=== PATIENT | female | born 1930 | race Caucasian/White ===

== ENCOUNTER → 2016-10-25 | Outpatient (REF) | payer MEDICARE, MEDICAID ==
[~2016-10-25] MED LIST: /ACET5TA PO; /WARF25TA OR; ACET500C OR; ACET500T2; ALDA25TA2 PO; AUGM500T34 PO; DIGO0.12 PO; DIOV160T5; DYAZIDE PO; FERR325T OR; FURO20TA2 PO; IRON CR PO; IRON65TA PO; LANO0.1211 OR; LASI20TA PO; LASI40TA PO; LISI10TA4 OR; METO100T PO; METO25TA2; METOPROLOL TARTRATE OR; MICR10CA PO; OMEP20CA3 PO; OMEP20TA7; OMEP20TA7 OR; PLAV75TA2; PLAV75TA2 OR; PRAD150C PO; PRAD75CA3 PO; SIMV20TA2 PO; SIMV40TA2 OR; VENTAER INH; VITA100T OR; VITA500C OR; VITA500T3 PO; ZOCO40TA; centrum silver; lovastatin; metoprolol
[2016-10-25 20:09] LABS: MEAN CORPUSCULAR HEMOGLOBIN 32.7 pg (27.0-33.0); MEAN CORPUSCULAR HGB CONC 31.3 g/dl (32.0-36.5); MEAN CORPUSCULAR VOLUME 104.4 fl (80.0-96.0); RED CELL DISTRIBUTION WIDTH 15.4 % (11.5-14.5); WHITE BLOOD COUNT 4.9 K/mm3 (4.0-10.0)
[2016-10-25 20:44] LABS: ALBUMIN 2.6 GM/DL (3.2-5.2); ALBUMIN/GLOBULIN RATIO 0.72 (1.00-1.93); ALKALINE PHOSPHATASE 92 U/L (45-117); ALT/SGPT 16 U/L (12-78); ANION GAP 8 MEQ/L (8-16); AST/SGOT 22 U/L (15-37); BILIRUBIN,TOTAL 0.6 MG/DL (0.2-1.0); BLOOD UREA NITROGEN 12 MG/DL (7-18); CALCIUM LEVEL 8.9 MG/DL (8.8-10.2); CARBON DIOXIDE LEVEL 36 MEQ/L (21-32); CHLORIDE LEVEL 98 MEQ/L (98-107); CREATININE FOR GFR 0.78 MG/DL (0.55-1.02); GLOMERULAR FILTRATION RATE > 60.0 (>32); GLUCOSE, FASTING 97 MG/DL (83-110); POTASSIUM SERUM 4.1 MEQ/L (3.5-5.1); SODIUM LEVEL 142 MEQ/L (136-145); TOTAL PROTEIN 6.2 GM/DL (6.4-8.2)
== END ==
LOC: M SFHCADAM 11:50
PROVIDERS: ATTEND Physician Assistant
DX: I11.0 Hypertensive heart disease with heart failure (principal); D50.9 Iron deficiency anemia, unspecified; M25.511 Pain in right shoulder
CPT/HCPCS: 80053; 85027; 85652; G0463

== ENCOUNTER 2016-11-14 11:07 | Inpatient (IN) | payer MEDICAID, MEDICARE ==
[~2016-11-14] VITALS: Ht 149.9 cm; Wt 60.3 kg
[2016-11-14] MEDS: CYANOCOBALAMIN 500 MCG TAB PO SCH (09:00)
[~2016-11-14 11:07] MED LIST changes: -DIGO0.12 PO; -FURO20TA2 PO; -IRON65TA PO; -METO100T PO; -OMEP20CA3 PO; -PRAD75CA3 PO; -SIMV20TA2 PO; -VITA500T3 PO
[2016-11-14] MEDS ORDERED: ACETAMINOPHEN 325 MG TAB As Ordered ONE (12:19)
[2016-11-14 12:27] LABS: BASO % 0.1 % (0.0-1.0); EOS % 0.2 % (0.0-3.0); LARGE UNSTAINED CELL # 0.2 K/mm3 (0.0-0.4); LARGE UNSTAINED CELL % 3.2 % (0.0-4.0); LYMPH # 0.7 K/mm3 (1.5-4.5); LYMPH % 14.1 % (24.0-44.0); MEAN CORPUSCULAR HGB CONC 32.6 g/dl (32.0-36.5); MEAN CORPUSCULAR VOLUME 104.3 fl (80.0-96.0); MONO # 0.4 K/mm3 (0.0-0.8); NEUTROPHILS % 75.4 % (36.0-66.0); PLATELET COUNT, AUTOMATED 279 k/mm3 (150-450); RED CELL DISTRIBUTION WIDTH 15.3 % (11.5-14.5); WHITE BLOOD COUNT 5.2 K/mm3 (4.0-10.0)
[2016-11-14 12:44] LABS: INR 1.37
[2016-11-14 12:47] LABS: CREATININE FOR GFR 1.21 MG/DL (0.55-1.02); GLOMERULAR FILTRATION RATE 45.1 (>32); POTASSIUM SERUM 3.9 MEQ/L (3.5-5.1)
--- NOTE | 2016-11-14 13:48 | REP ---
CHEST, TWO VIEWS: HISTORY: Chest pain. COMPARISON: 08/03/2015 A diffuse increased in interstitial markings is present in the lungs consistent with chronic interstitial fibrosis. The cardiac silhouette is enlarged. The pulmonary vasculature is normal in appearance. There are old compression fractures of several mid and lower thoracic vertebral bodies. Degenerative change is present in the thoracic spine. IMPRESSION: 1. Chronic interstitial fibrosis. 2. Cardiomegaly. Signed by Marvin Munson MD 11/14/2016 02:13 P
--- NOTE | 2016-11-14 14:08 | REP ---
DUPLEX EXTREMITY VENOUS ULTRASOUND: Left lower extremity. HISTORY: Left leg swelling. FINDINGS: The deep veins are anechoic and fully compressible from the groin to the popliteal fossa in the left lower extremity. Color flow imaging is homogeneous. Spectral Doppler interrogation demonstrates intact respiratory variation in flow and normal manual augmentation of flow. There is no evidence of deep vein thrombosis. Some atherosclerotic shadowing plaquing was seen from arterial vessels. Soft tissue edema is noted in the popliteal soft tissues. IMPRESSION: Negative left lower extremity duplex venous ultrasound. No evidence of deep vein thrombosis. Signed by Joe Chatman MD 11/14/2016 03:01 P
--- NOTE | 2016-11-14 14:08 | REP ---
RIGHT UPPER EXTREMITY DUPLEX VENOUS ULTRASOUND: HISTORY: Right arm swelling. FINDINGS: The right internal jugular, right subclavian, right axillary, right brachial, and right basilic veins are anechoic and compressible in the right upper extremity. The cephalic vein could not be visualized. Cephalic vein thrombus cannot be excluded. No thrombosed venous structures directly visualized. IMPRESSION: Cephalic vein not visualized in the right arm. Cannot exclude thrombosis of the right cephalic vein but no venous thrombosis was directly visualized. Other veins normal. Signed by Joe Chatman MD 11/14/2016 03:00 P
--- NOTE | 2016-11-14 14:20 | REP ---
CT STUDY OF THE CHEST WITHOUT CONTRAST: HISTORY: Chest pain. Comparison chest CT study is from December 27, 2015. CT FINDINGS: There is a diffuse interstitial fibrosis pattern in the lung nur bilaterally. This is probably a little less prominent than on the CT study from 12/27/2015. The thoracic aorta is normal in course and caliber and unchanged in appearance. Some vascular calcification is seen including coronary artery vascular calcification. No hilar or mediastinal mass or adenopathy is observed. No pleural effusion is seen. No adrenal mass is seen. There is vascular calcification in a multifocal fashion along the course of the splenic artery. I cannot exclude splenic arterial aneurysms as there are several ring calcified lesions along the course of the splenic artery. The largest of these measures 1.9 cm in greatest diameter. These are unchanged. There are clips in the gallbladder fossa on sea foam kiss maker view. Bone window settings show degenerative disc changes in the thoracic spine at multiple levels. Diffuse osteopenia is noted. No bony destructive lesion is appreciated. IMPRESSION: Evidence of COPD with diffuse interstitial lung disease pattern. No evidence of focal infiltrate or pleural effusion. Cardiomegaly with vascular calcification. Stable vascular calcifications in the splenic artery. The patient status post cholecystectomy. Signed by Joe Chatman MD 11/14/2016 03:01 P
[2016-11-14] MEDS ORDERED: FURO20TA2 PO ×2 (15:06)
[2016-11-14] MEDS ORDERED: PRAD75CA3 PO (15:10)
[2016-11-14] MEDS ORDERED: OMEP20CA3 PO (15:10)
[2016-11-14] MEDS ORDERED: VITA500T3 PO (15:10)
[2016-11-14] MEDS ORDERED: METO100T PO (15:10)
[2016-11-14] MEDS ORDERED: IRON65TA PO (15:10)
[2016-11-14] MEDS ORDERED: SIMV20TA2 PO (15:10)
[2016-11-14] MEDS ORDERED: DIGO0.12 PO (15:10)
[2016-11-14 15:15] LABS: DIGOXIN LEVEL 1.7 NG/ML (0.5-2.0)
[2016-11-14] MEDS: NS 1,000 ML IV SCH (20:00)
--- NOTE | 2016-11-14 20:24 | ECGEPIP ---
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
[2016-11-14] MEDS ORDERED: SIMVASTATIN 20 MG TAB PO SCH (21:00)
--- NOTE | 2016-11-14 21:36 | HPE ---
DATE OF ADMISSION: 11/14/2016 PRIMARY CARE PROVIDER: ADRIANA Ludwig CHIEF COMPLAINT: Bilateral flank pain and difficulty swallowing. HISTORY OF PRESENT ILLNESS: Ms. Rojas is an 86-year-old female with a past medical history of atrial fibrillation on Pradaxa, coronary artery disease, congestive heart failure (CHF), who presents to the emergency department today with complaint of bilateral right flank pain, which started approximately one week ago. States that her son was trying to lift her up to place her in a truck and at that time he might have pressed too hard by her rib area, which she immediately afterward felt pain. She describes it as sharp. No radiation. Also around the same time started having a problem with difficulty swallowing. Has dysphagia, both with solids and liquids. However, has been able to take all of her diuretic medication despite her dysphagia and decreased appetite. Has chronic shortness of breath and is only able to walk 25 feet before having symptoms, which has not been changed in the last week. There have been no changes to medications. Denies chest pain, palpitations, fevers, chills, night sweats, weight changes, paroxysmal nocturnal dyspnea, pillow orthopnea. Has chronic leg swelling. PAST MEDICAL HISTORY: 1. CHF, ejection fraction of 50% on echo in 2010. 2. Macrocytic anemia. 3. Asthma. 4. Atrial fibrillation on Pradaxa and digoxin. 5. Pulmonary hypertension. 6. Aortic stenosis. 7. Carotid stenosis. 8. Gastroesophageal reflux disease (GERD). 9. Hyperlipidemia. 10. Transient TIA in 2007. 11. Iron deficiency anemia. 12. Gastroesophageal reflux disease (GERD). PAST SURGICAL HISTORY: 1. Carotid endarterectomy. 2. Cholecystectomy. 3. Hysterectomy. 4. Appendectomy. ALLERGIES: ASPIRIN, rash. IBUPROFEN, rash. MORPHINE, reaction is unknown. HOME MEDICATIONS: - vitamin B12 500 mcg by mouth daily - Pradaxa 75 mg by mouth twice a day - digoxin 0.125 mg by mouth daily - Lasix 40 mg by mouth in the morning and 20 mg by mouth daily at noon - iron 325 mg every two days - metoprolol tartrate 100 mg by mouth twice a day - omeprazole 20 mg by mouth daily - Zocor 20 mg by mouth every two days FAMILY HISTORY: Father at 55 of unknown cancer. Mother at 47 of unknown cancer. One brother of prostate cancer. One son with testicular cancer. SOCIAL HISTORY: The patient is a never smoker. No alcohol. No drug use. No recent travel. Lives at home with her son. 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 REVIEW OF SYSTEMS: CONSTITUTIONAL: Positive for weakness and fatigue. Denies fevers, chills, rigors, weight changes. HEENT: Positive for difficulty with swallowing but not speech. Denies headaches , lightheadedness, dizziness, blurry vision, difficulty with speech and swallow. CARDIOVASCULAR: Denies chest pain, paroxysmal nocturnal dyspnea, pillow orthopnea. Positive bilateral lower extremity edema. PULMONARY: Positive for chronic shortness of breath due to her lung problem but not hemoptysis. GASTROINTESTINAL: Reports intermittent diarrhea whenever she takes her iron supplementation. No abdominal pain, nausea, vomiting. Denies hematochezia, melena, or hematemesis, nausea, vomiting, constipation. GENITOURINARY: Reports decreased urine output, as she has been taking her Lasix despite decreased oral intake. No dysuria, frequency or hematuria. MUSCULOSKELETAL: Positive for flank pain. NEUROLOGICAL: No paralysis, paresthesia, headaches. ENDOCRINE: Negative for diabetes, or thyroid disease. LYMPHATICS: No lumps, bumps, or swelling anywhere in neck, axilla, or groin. HEMATOLOGY: She has no history of abnormal bleeding or bruising. She is on Pradaxa for atrial fibrillation. ONCOLOGY: No reported history of depression, anxiety. PHYSICAL EXAMINATION: VITAL SIGNS: Blood pressure 120/57, heart rate 79, respiration rate 16, temperature 96.1, pulse oximetry 94% on room air. Body Mass Index (BMI) 30. GENERAL: Patient was lying in bed at a flat angle, comfortable in no acute distress. She is chronically ill-appearing. Daughters at bedside. HEENT: Normocephalic, atraumatic, extraocular movement intact, moist oral mucosa. NECK: Supple, trachea midline. No jugular venous distention (JVD). CHEST: Symmetric chest rise. No accessory muscle use. Breath sounds were diminished bilaterally with occasional crackles. HEART: Irregularly irregular but not tachycardic. Variable S1, S2. ABDOMEN: Soft, nontender, nondistended, bowel sounds present. No guarding. No rebound. Bilateral ribcage tender to palpation. EXTREMITIES: Left lower extremity with 2+ pitting edema more significant compared to right. LABORATORY DATA: WBC 5.2, hemoglobin 12.4, hematocrit 38, MCV 104.3, platelets 279, neutrophils 75.4. Sodium 143, potassium 3.9, chloride 95, carbon dioxide 36, BUN 50, creatinine 1.21. First set of troponin 0.17, repeat immediately after was 0.17. PT 17, INR 1.37. EKG showed diffuse ST depression in V1 through V6, also 2 and 3. Chest x-ray showed chronic interstitial fibrosis, cardiomegaly. Vascular ultrasound showed cephalic vein not visualized in the right arm, cannot exclude thrombosis of right cephalic vein, but not venous thrombosis visualized. Ultrasound of the left lower extremity with no deep vein thrombosis (DVT) evident. CT of the chest showed evidence of chronic obstructive pulmonary disease (COPD) with diffuse interstitial lung disease. No focal infiltrate or pleural effusion. Vascular calcification in the splenic artery. IMPRESSION/PLAN: Ms. Rojas is an 86-year-old female who presented with complaint of bilateral flank pain. 1. Bilateral flank pain. CT of the chest was unrevealing for any fracture injury. Based on her pain being reproducible on physical examination, suspect that this is musculoskeletal in nature. Continue pain control with Tylenol for now. 2. Abnormal EKG and elevated troponin. EKG showed diffuse ST depression. Reason is unclear and could be secondary to coronary artery disease due to presenting EKG findings versus secondary to renal disease. We will repeat cardiac enzymes now that it has been more than four hours since her last check. Check EKG in the morning and trend troponin. Continue to monitor closely for acute coronary syndrome symptoms. 3. Acute kidney injury. This is likely secondary to dehydration, as the patient has not been tolerating oral diet yet continued to take Lasix. For now, we will continue holding her home diuretic and restart her on low fluid maintenance and reassess fluid status in the morning. She is at risk for fluid retention as she does have a history of congestive heart failure (CHF). 4. Elevated troponin, could be due to coronary artery disease, renal failure, demand ischemia. Plan as mentioned above. 5. Dysphagia, unclear. Reportedly is also both liquids and solids. Does not have tobacco or alcohol history. We will order speech and swallow to further evaluate. 6. Atrial fibrillation. Currently rate is controlled. Continue home dose of metoprolol tartrate 100 mg by mouth twice a day and digoxin level was checked and was therapeutic. Continue Pradaxa for anticoagulation. 7. Hypertension. Continue Lopressor, as mentioned above. 8. Carotid stenosis. Status post left carotid endarterectomy. 9. Hyperlipidemia. Continue Zocor 200 mg every two days. 10. Iron deficiency anemia. Continue ferrous sulfate 325 mg by mouth every two days. 11. Chronic diastolic (congestive) heart failure. Not in exacerbation. She appears dehydrated. Will be on gentle hydration as above. 12. Deep vein thrombosis (DVT) prophylaxis. On Pradaxa for anticoagulation. DISPOSITION: Due to the patient's condition, she will require two midnight hospitalization. My preceptor for this patient encounter was Dr. Bowie. The preceptor was physically present in the building during the encounter and was fully available. As needed, all aspects of the patient interview, examination, medical decision making process, and medical care plan development were reviewed and approved by the preceptor. The preceptor is aware and concurs with the plan as stated in the body of this note and will attest to such by his/her cosignature. JOSE
[2016-11-14] MEDS: DIGOXIN 0.125 MG TAB PO SCH (22:09)
[2016-11-14] MEDS: OMEPRAZOLE 20 MG CAP PO SCH (22:09)
[2016-11-14 22:15] VITALS: BP 104/50
[2016-11-14] MEDS: METOPROLOL TARTRATE 100 MG TAB PO SCH (22:45)
[2016-11-14] MEDS: DABIGATRAN ETEXILATE 75 MG CAP (PRADAXA) PO SCH (23:49)
[2016-11-15] VITALS: BP 104/55
[2016-11-15 04:00] VITALS: BP 108/60
[2016-11-15 07:41] LABS: MEAN CORPUSCULAR HEMOGLOBIN 32.9 pg (27.0-33.0); RED CELL DISTRIBUTION WIDTH 16.9 % (11.5-14.5); WHITE BLOOD COUNT 6.2 K/mm3 (4.0-10.0)
[2016-11-15 08:00] VITALS: BP 116/52
[2016-11-15 08:25] LABS: ALBUMIN 2.3 GM/DL (3.2-5.2); BLOOD UREA NITROGEN 40 MG/DL (7-18); CALCIUM LEVEL 8.2 MG/DL (8.8-10.2); CHLORIDE LEVEL 100 MEQ/L (98-107); CREATININE FOR GFR 0.81 MG/DL (0.55-1.02); GLUCOSE, FASTING 72 MG/DL (83-110); POTASSIUM SERUM 3.7 MEQ/L (3.5-5.1); SODIUM LEVEL 144 MEQ/L (136-145)
[2016-11-15 08:48] LABS: MEAN CORPUSCULAR VOLUME 103.5 fl (80.0-96.0)
[2016-11-15] MEDS: FERROUS SULFATE 325MG TAB PO SCH (09:00)
[2016-11-15] MEDS: CYANOCOBALAMIN 500 MCG TAB PO SCH (09:09)
[2016-11-15] MEDS: DIGOXIN 0.125 MG TAB PO SCH (09:09)
[2016-11-15] MEDS: DABIGATRAN ETEXILATE 75 MG CAP (PRADAXA) PO SCH ×2 (09:09→22:01)
[2016-11-15] MEDS: OMEPRAZOLE 20 MG CAP PO SCH (09:09)
[2016-11-15] MEDS: METOPROLOL TARTRATE 100 MG TAB PO SCH (09:10)
[2016-11-15 10:41] LABS: ANION GAP 11 MEQ/L (8-16); CARBON DIOXIDE LEVEL 33 MEQ/L (21-32)
[2016-11-15 12:00] VITALS: BP 137/62
[2016-11-15 15:25] VITALS: BP 139/64
--- NOTE | 2016-11-15 15:45 | EDDOCDS ---
Physician Documentation [facility] Name: Criselda Rojas Age: 86 yrs Sex: Female : 1930 Arrival Date: 11/14/2016 Time: 11:07 Bed Admit Hold Private MD: Marly Benítez M Disposition: 11/14/16 15:06 Hospitalization ordered by Moe Bowie for Inpatient Admission. Preliminary diagnosis is Other chest pain. - Bed requested for PCU. - Status is Inpatient Admission. rs6 - Condition is Stable. - Problem is new. - Symptoms are unchanged. Historical: - Allergies: Aspirin; Ibuprofen; Morphine; - Home Meds: 1. furosemide 20 mg oral tab 2 times per day 2. Pradaxa 75 mg oral cap 2 times per day 3. omeprazole 20 mg Oral cpDR once daily 4. digoxin 125 mcg Oral tab once daily 5. metoprolol tartrate 100 mg Oral tab 2 times per day 6. Iron CR 65 mg Oral daily 7. simvastatin 40 mg Oral tab once daily - PMHx: Hypertension; CAD; Atrial Fib; Hypercholesterolemia; - PSHx: Appendectomy; Hysterectomy; Carotid surgery; D & C; Cholecystectomy; - Social history: Smoking status: Patient states was never smoker of tobacco. No barriers to communication noted, The patient speaks fluent Scottish, Speaks appropriately for age. - Family history: Not pertinent. - : The pt / caregiver states he / she is on anticoagulants: Pradaxa (Dabigatran) Home medication list is obtained from the patient. - Exposure Risk Screening:: None identified. Vital Signs: 11/14 11:10 BP 120 / 57; Pulse 79; Resp 16; Temp 96.1; Pulse Ox 94% ; Weight 68.04 kg / 150 lbs; cmb Height 4 ft. 11 in. (149.86 cm); Pain 10/10; 17:31 BP 116 / 51 (auto/); mlb1 17:31 Pulse 84 MON; Pulse Ox 95% ; mlb1 17:46 BP 78 / 43 (auto/); mlb1 17:46 Pulse 80 MON; Pulse Ox 100% ; mlb1 17:48 BP 81 / 53 (auto/); mlb1 17:48 Pulse 80 MON; Pulse Ox 100% ; mlb1 17:51 BP 88 / 67 (auto/); mlb1 17:52 BP 108 / 52 (auto/); mlb1 17:52 Pulse 76 MON; Pulse Ox 100% ; mlb1 17:53 Pulse 82 MON; Pulse Ox 100% ; mlb1 18:01 BP 99 / 49 (auto/); mlb1 18:01 Pulse 74 MON; Pulse Ox 100% ; mlb1 18:16 BP 101 / 68 (auto/); mlb1 18:16 Pulse 70 MON; Pulse Ox 100% ; mlb1 18:31 BP 149 / 59 (auto/); mlb1 18:46 BP 104 / 53 (auto/); kas2 18:46 Pulse 74 MON; Pulse Ox 100% ; kas2 18:46 Resp 18; Temp 97.9; kas2 18:47 Pulse Ox 100% on 2 lpm NC; mlb1 19:01 BP 94 / 44 (auto/); kas2 19:01 Pulse 58 MON; Pulse Ox 98% ; kas2 19:16 BP 114 / 58 (auto/); kas2 19:16 Pulse 62 MON; Pulse Ox 100% ; kas2 19:31 BP 98 / 49 (auto/); kas2 19:31 Pulse 64 MON; Pulse Ox 100% ; kas2 19:46 BP 100 / 51 (auto/); kas2 19:46 Pulse 54 MON; Pulse Ox 100% ; kas2 20:01 BP 110 / 77 (auto/); kas2 20:01 Pulse 62 MON; Pulse Ox 100% ; kas2 20:16 BP 104 / 51 (auto/); kas2 20:16 Pulse 60 MON; Pulse Ox 100% ; kas2 20:31 BP 124 / 61 (auto/); kas2 20:31 Pulse 66 MON; Pulse Ox 100% ; kas2 11:10 Body Mass Index 30.30 (68.04 kg, 149.86 cm) cmb MDM: 12:02 Animal Care Supervisor/Pulse Ox/q 30 min VS ordered. sd1 12:02 IV Saline Lock ordered. sd1 12:02 Rhythm Strip to chart ordered. sd1 12:02 Undress patient appropriately for examination ordered. sd1 12:02 Acetaminophen Tablet 650 mg PO once ordered. sd1 12:02 Chest, 2 View (pa\E\lat) Ordered. EDMS 12:02 Basic Metabolic Profile Ordered. EDMS 12:02 CBC with Diff Ordered. EDMS 12:02 Cardiac Injury Profile Ordered. EDMS 12:02 Prothrombin Time Profile\E\INR Ordered. EDMS 12:03 Troponin Ordered. EDMS 12:03 ECG WITH READING ER PHYS+CARDIAG ordered. EDMS 12:07 US Lower Extremity R/O DVT Ordered. EDMS 12:07 US Upper Extremity R/O DVT Ordered. EDMS 12:51 Basic Metabolic Profile Reviewed. sd1 12:51 CBC with Diff Reviewed. sd1 12:51 Cardiac Injury Profile Reviewed. sd1 12:51 Prothrombin Time Profile\E\INR Reviewed. sd1 12:51 Troponin Reviewed. sd1 13:23 Redraw CIP &Troponin (put time in details section) ordered. sd1 13:25 CT Chest Without Contrast Ordered. EDMS 13:30 Redraw CIP &Troponin (put time in details section) complete. jml1 13:32 CARDIAC MARKER PANEL Ordered. EDMS 14:12 Misc Gutter Hanger Order ordered. sd1 14:19 CARDIAC MARKER PANEL Reviewed. sd1 14:19 Chest, 2 View (pa\E\lat) Reviewed. sd1 14:19 US Lower Extremity R/O DVT Reviewed. sd1 14:19 US Upper Extremity R/O DVT Reviewed. sd1 14:42 Misc Gutter Hanger Order complete. jml1 14:44 BED REQUEST+ADM ordered. EDMS 14:47 DIGOXIN LEVEL Ordered. EDMS 14:52 NS 0.9% 1000 ml IV at 150 mL/hr continuous ordered. sd1 15:07 Chest, 2 View (pa\E\lat) Reviewed. sd1 15:07 CT Chest Without Contrast Reviewed. sd1 15:38 [facility] Payment Agreement was scanned into [employer] and attached to record. jp5 15:38 Financial registration complete. jp5 15:58 ELECTROCARDIOGRAM ADULT ordered. EDMS 16:04 CARDIAC MARKER PANEL Ordered. EDMS 16:44 NPO DIET ordered. EDMS 19:23 ECHOCARD,DOPPLER/COLOR FLOW ordered. EDMS 19:34 COMPLETE BLOOD COUNT Ordered. EDMS 19:34 RENAL PROFILE Ordered. EDMS 19:34 CARDIAC MARKER PANEL Ordered. EDMS 19:34 CARDIAC MARKER PANEL Ordered. EDMS 20:47 CARDIAC MARKER PANEL Ordered. EDMS 22:19 Admission / Observation Status ordered. EDMS 11/15 07:15 PUREED DIET ordered. EDMS 13:30 T-Sheet-- Draft Copy was scanned into [employer] and attached to record. gb Administered Medications: 11/14 12:26 Drug: Acetaminophen 650 mg [acetaminophen 325 mg tablet (2 tabs)] Route: PO; mb9 15:04 Drug: NS 0.9% 1000 ml [sodium chloride 0.9 % injection solution] Route: IV; Rate: 150 mlb1 mL/hr; Site: right antecubital; Signatures: Dispatcher [employer] EDMS Radha Kaiser MD MD sd1 Stefani Hays, Reg Reg gb Jonel Hopper, RN RN mlb1 Andrew Sylvester jml1 Margarita Alvarado,RN RN aa3 Vera Couch,RN RN ead Mariam Mathur, LOBBY PORTER LOBBY PORTER rs6 Bear Stinson jp5 Jonel Miller RN mb9 The chart was reviewed and I authenticate all verbal orders and agree with the evaluation and treatment provided.Corrections: (The following items were deleted from the chart) 14:48 14:44 DIGOXIN LEVEL+LAB ordered. EDMS EDMS 16:36 16:23 TROPONIN ordered. EDMS EDMS 17:18 17:01 TROPONIN ordered. EDMS EDMS 20:08 17:29 CARDIAC MARKER PANEL ordered. EDMS EDMS 20:10 17:29 TROPONIN ordered. EDMS EDMS 20:47 19:34 CARDIAC MARKER PANEL ordered. EDMS EDMS Attachments: 15:38 [facility] Payment Agreement jp5 11/15 13:30 T-Sheet-- Draft Copy gb MTDD
--- NOTE | 2016-11-15 15:45 | EDDOCDS ---
Nurse's Notes [facility] Name: Criselda Cramer Age: 86 yrs Sex: Female : 1930 Arrival Date: 11/14/2016 Time: 11:07 Bed Admit Hold Private MD: Marly Benítez M Diagnosis: Other chest pain Presentation: 11/14 11:27 Presenting complaint: Patient states: pt c/o right and left flank pain. family reports ead pt has been having difficulty swallowing pills over the past week. daughter reports n/v. Adult Sepsis Screening: The patient does not have new or worsening altered mentation. Patient's respiratory rate is less than 22. Systolic blood pressure is greater than 100. Patient has a qSOFA score of 0- Negative Sepsis Screen. Suicide/Homicide risk assessment- the patient denies having any suicidal and/or homicidal ideations and does not present with any other emotional, behavioral or mental health complaints. 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 Transition of care: patient was not received from another setting of care. 11:27 Acuity: MILENA Level 3 ead 11:27 Method Of Arrival: Wheelchair ead Triage Assessment: 11:33 General: Appears in no apparent distress, Behavior is appropriate for age, cooperative. ead Pain: Location: anterior aspect of right lateral abdomen and anterior aspect of left lateral abdomen. Neurological: Level of Consciousness is awake, alert, obeys commands, Oriented to person, place, time. EENT: Parent/caregiver reports the patient having daughter reports pt has been having difficulty swallowing pills. Respiratory: Airway is patent Respiratory effort is even, unlabored. GI: Reports nausea, vomiting, right and left flank pain. Derm: Skin is pink, warm & dry. Historical: - Allergies: Aspirin; Ibuprofen; Morphine; - Home Meds: 1. furosemide 20 mg oral tab 2 times per day 2. Pradaxa 75 mg oral cap 2 times per day 3. omeprazole 20 mg Oral cpDR once daily 4. digoxin 125 mcg Oral tab once daily 5. metoprolol tartrate 100 mg Oral tab 2 times per day 6. Iron CR 65 mg Oral daily 7. simvastatin 40 mg Oral tab once daily - PMHx: Hypertension; CAD; Atrial Fib; Hypercholesterolemia; - PSHx: Appendectomy; Hysterectomy; Carotid surgery; D & C; Cholecystectomy; - Social history: Smoking status: Patient states was never smoker of tobacco. No barriers to communication noted, The patient speaks fluent Gibraltarian, Speaks appropriately for age. - Family history: Not pertinent. - : The pt / caregiver states he / she is on anticoagulants: Pradaxa (Dabigatran) Home medication list is obtained from the patient. - Exposure Risk Screening:: None identified. Screenin:18 Screening information is obtained from the patient. Fall risk: At risk due to age, The mlb1 following interventions are performed due to a positive Fall Risk Screen: Fall Risk is added to Special Handling on the patient Summary Screen. A Fall Risk Bracelet was applied to the patient. Side Rails are placed in the up position. A Call [place]aza is given with instruction to call for help when getting out of bed. Fall Alert bracelet is placed on the patient. 17:34 Assistance ADL's: Requires assistance with housework, assistance is provided by family mlb1 members, medication administration, assistance is provided by family members. Nutritional screening: No deficits noted. home support is adequate. 22:38 Abuse/DV Screen: The patient / caregiver reports he/she is: not in a situation that cf2 causes fear, pain or injury. 22:38 Advance Directives: Further advance directive information is declined. cf2 Assessment: 12:02 General: Appears in no apparent distress, Behavior is appropriate for age, cooperative. mb9 Pain: Location: anterior aspect of left lateral abdomen and anterior aspect of right lateral abdomen Pain currently is 7 out of 10 on a pain scale. Neurological: Level of Consciousness is awake, alert, Oriented to person, place, time, Weakness Speech is normal, Facial symmetry appears normal. EENT: Reports difficulty swallowing since 4 days ago. Cardiovascular: Heart tones S1 S2 present Rhythm is sinus rhythm with PACs. Cardiovascular: pt's right arm appears swollen compared to left. pts left leg appears swollen compared to right. . Respiratory: Airway is patent Respiratory effort is even, unlabored, Breath sounds are clear bilaterally. Breath sounds are diminished in left posterior lower lobe and right posterior lower lobe. 12:17 General: Appears in no apparent distress, Behavior is appropriate for age, cooperative. mlb1 Pain: Denies pain. EENT: Reports pain when swallowing. Respiratory: Airway is patent Respiratory effort is even, unlabored, Breath sounds are diminished in right posterior lower lobe and left posterior lower lobe. Derm: No deficits noted. 13:13 General: Appears in no apparent distress, comfortable, Behavior is cooperative, Reports mlb1 fatigue for. Pain: Denies pain. Neurological: No deficits noted. Respiratory: No deficits noted. 14:12 General: Appears in no apparent distress, comfortable, Behavior is appropriate for age, mlb1 cooperative. Pain: Denies pain. Neurological: No deficits noted. Respiratory: No deficits noted. Respiratory: Airway is patent Respiratory effort is even, unlabored. 15:11 General: Appears in no apparent distress, comfortable, to be sleeping. Behavior is mlb1 quiet. 16:13 General: Appears in no apparent distress, comfortable, Behavior is appropriate for age, mlb1 cooperative, quiet. Pain: Denies pain. Neurological: No deficits noted. 17:11 General: Appears in no apparent distress, comfortable, to be sleeping. Behavior is mlb1 cooperative. 18:10 General: Appears in no apparent distress, comfortable, Behavior is appropriate for age, mlb1 cooperative. Pain: Denies pain. Neurological: Level of Consciousness is awake, alert, Oriented to person, place. Respiratory: No deficits noted. 19:03 General: Verbal report given by Tomas Malik RN. Assumed care of patient at this time.. kas2 19:18 General: Appears in no apparent distress, comfortable, Behavior is appropriate for age, kas2 cooperative. Pain: Denies pain. Neurological: Level of Consciousness is Oriented to person, place, time. Cardiovascular: Capillary refill < 3 seconds Heart tones S1 S2 present Rhythm is sinus rhythm No ectopy. Respiratory: Airway is patent Respiratory effort is even, unlabored, Breath sounds are clear bilaterally. Derm: Skin is intact, Skin is dry, Skin is pink, warm & dry. Skin temperature is warm. 20:10 General: Patient is sleeping at this time. Appears comfortable. No apparent distress kas2 noted. VSS. Airway patent and respiratory effort is even and unlabored. Call peraza within reach. Will continue to monitor.. 20:38 General: Verbal report given to Estella Becerril RN. . kas2 Vital Signs: 11:10 BP 120 / 57; Pulse 79; Resp 16; Temp 96.1; Pulse Ox 94% ; Weight 68.04 kg; Height 4 ft. cmb 11 in. (149.86 cm); Pain 10/10; 17:31 BP 116 / 51 (auto/); mlb1 17:31 Pulse 84 MON; Pulse Ox 95% ; mlb1 17:46 BP 78 / 43 (auto/); mlb1 17:46 Pulse 80 MON; Pulse Ox 100% ; mlb1 17:48 BP 81 / 53 (auto/); mlb1 17:48 Pulse 80 MON; Pulse Ox 100% ; mlb1 17:51 BP 88 / 67 (auto/); mlb1 17:52 BP 108 / 52 (auto/); mlb1 17:52 Pulse 76 MON; Pulse Ox 100% ; mlb1 17:53 Pulse 82 MON; Pulse Ox 100% ; mlb1 18:01 BP 99 / 49 (auto/); mlb1 18:01 Pulse 74 MON; Pulse Ox 100% ; mlb1 18:16 BP 101 / 68 (auto/); mlb1 18:16 Pulse 70 MON; Pulse Ox 100% ; mlb1 18:31 BP 149 / 59 (auto/); mlb1 18:46 BP 104 / 53 (auto/); kas2 18:46 Pulse 74 MON; Pulse Ox 100% ; kas2 18:46 Resp 18; Temp 97.9; kas2 18:47 Pulse Ox 100% on 2 lpm NC; mlb1 19:01 BP 94 / 44 (auto/); kas2 19:01 Pulse 58 MON; Pulse Ox 98% ; kas2 19:16 BP 114 / 58 (auto/); kas2 19:16 Pulse 62 MON; Pulse Ox 100% ; kas2 19:31 BP 98 / 49 (auto/); kas2 19:31 Pulse 64 MON; Pulse Ox 100% ; kas2 19:46 BP 100 / 51 (auto/); kas2 19:46 Pulse 54 MON; Pulse Ox 100% ; kas2 20:01 BP 110 / 77 (auto/); kas2 20:01 Pulse 62 MON; Pulse Ox 100% ; kas2 20:16 BP 104 / 51 (auto/); kas2 20:16 Pulse 60 MON; Pulse Ox 100% ; kas2 20:31 BP 124 / 61 (auto/); kas2 20:31 Pulse 66 MON; Pulse Ox 100% ; kas2 11:10 Body Mass Index 30.30 (68.04 kg, 149.86 cm) cmb Vitals: 11:10 Log In Time: November 14, 2016 at 11:07. cmb ED Course: 11:09 Patient visited by Caty Davis. cmb 11:09 Marly Benítez is Private Physician. cmb 11:09 Patient moved to Waiting cmb 11:13 Patient moved to Pre RCE cmb 11:29 Triage Initiated ead 11:50 Patient moved to 10 kr3 11:51 Radha Kaiser MD is Attending Physician. sd1 11:53 Patient visited by Radha Kaiser MD. sd1 12:10 Accompanied by Family Member, Patient has correct armband on for positive ct3 identification. Placed in gown. Bed in low position. Call light in reach. Side rails up X2. cardiac monitor technician on. Pulse ox on. NIBP on. 12:10 EKG done. (by ED staff). Reviewed by Radha Kaiser MD. ct3 12:11 Patient visited by Carin Velásquez PCA. ct3 12:16 Basic Metabolic Profile Sent. mlb1 12:16 CBC with Diff Sent. mlb1 12:17 Cardiac Injury Profile Sent. mlb1 12:17 Prothrombin Time Profile\E\INR Sent. mlb1 12:17 Troponin Sent. mlb1 12:17 Inserted saline lock: 20 gauge in right antecubital area and blood collected. The mlb1 patient tolerated the procedure well. No procedures done that require assistance. 12:18 Patient visited by Jonel Hopper, TIM. mlb1 12:22 Patient moved to Ultrasound en 13:13 Patient visited by Jonel Hopper, RN. mlb1 13:13 Patient visited by Jonel Hopper, RN. mlb1 13:17 Patient moved to 10 en 13:34 CARDIAC MARKER PANEL Sent. mlb1 14:11 Patient visited by Andrew Sylvester. jml1 14:11 Assisted with bedpan. jml1 14:11 Chest, 2 View (pa\E\lat) Returned. EDMS 14:11 US Upper Extremity R/O DVT Returned. EDMS 14:11 US Lower Extremity R/O DVT Returned. EDMS 14:58 DIGOXIN LEVEL Sent. mlb1 15:01 Chest, 2 View (pa\E\lat) Returned. EDMS 15:01 CT Chest Without Contrast Returned. EDMS 15:06 Moe Bowie is Hospitalizing Provider. sd1 15:12 Patient visited by Jonel Hopper RN. mlb1 15:38 [facility] Payment Agreement was scanned into [employer] and attached to record. jp5 15:52 US Upper Extremity R/O DVT Returned. EDMS 15:52 US Lower Extremity R/O DVT Returned. EDMS 15:52 CT Chest Without Contrast Returned. EDMS 16:13 Patient visited by Jonel Hopper RN. mlb1 16:31 Patient moved to Admit Hold tmm1 17:12 Patient visited by Jonel Hopper RN. mlb1 17:14 The patient / caregiver is instructed regarding the plan of care and ED course. mlb1 18:47 Patient visited by Jonel Hopper RN. mlb1 19:03 Caridad Hickman RN is Primary Nurse. kas2 19:03 Patient visited by Caridad Hickman RN. kas2 19:04 Patient visited by Telly Alfonso PCA. kb5 19:21 Patient visited by Caridad Hickman RN. kas2 20:39 Patient visited by Caridad Hickman RN. kas2 20:53 Patient moved to 14 tmm1 21:06 Patient moved to Admit Hold sls1 21:16 EKG-ADULT Returned. EDMS 21:47 Primary Nurse role handed off by Caridad Hickman RN cf2 21:47 Estella Quiroz,TIM is Primary Nurse. cf2 21:47 Patient visited by Estella Quiroz RN. cf2 21:47 Patient visited by Estella Quiroz RN. cf2 22:12 Patient visited by Estella Quiroz RN. cf2 22:37 Patient visited by Estella Quiroz RN. cf2 11/15 13:30 T-Sheet-- Draft Copy was scanned into [employer] and attached to record. gb 14:28 Inserted peripheral IV: 20gauge IV in left hand. dwg Administered Medications: 11/14 12:26 Drug: Acetaminophen 650 mg [acetaminophen 325 mg tablet (2 tabs)] Route: PO; mb9 15:04 Drug: NS 0.9% 1000 ml [sodium chloride 0.9 % injection solution] Route: IV; Rate: 150 mlb1 mL/hr; Site: right antecubital; Order Results: Lab Order: Basic Metabolic Profile; SPEC'M 11/14/16 12:14 Test: GLUCOSE, FASTING; Value: 95; Range: 83-110; Units: MG/DL; Status: F Test: BLOOD UREA NITROGEN; Value: 50; Range: 7-18; Abnormal: Above high normal; Units: MG/DL; Status: F Test: CREATININE FOR GFR; Value: 1.21; Range: 0.55-1.02; Abnormal: Above high normal; Units: MG/DL; Status: F Test: GLOMERULAR FILTRATION RATE; Value: 45.1; Range: >32; Status: F Test: SODIUM LEVEL; Value: 143; Range: 136-145; Units: MEQ/L; Status: F Test: POTASSIUM SERUM; Value: 3.9; Range: 3.5-5.1; Units: MEQ/L; Status: F Test: CHLORIDE LEVEL; Value: 95; Range: 98-107; Abnormal: Below low normal; Units: MEQ/L; Status: F Test: CARBON DIOXIDE LEVEL; Value: 36; Range: 21-32; Abnormal: Above high normal; Units: MEQ/L; Status: F Test: ANION GAP; Value: 12; Range: 8-16; Units: MEQ/L; Status: F Test: CALCIUM LEVEL; Value: 9.0; Range: 8.8-10.2; Units: MG/DL; Status: F Test Note: ; Units are mL/min/1.73 m2 Chronic Kidney Disease Staging per NKF: Stage I & II GFR >=60 Normal to Mildly Decreased Stage III GFR 30-59 Moderately Decreased Stage IV GFR 15-29 Severely Decreased Stage V GFR <15 Very Little GFR Left ESRD GFR <15 on DOUGH MIXER OPERATOR Test: DIGOXIN LEVEL; Range: 0.5-2.0; Units: NG/ML; Status: I Lab Order: CBC with Diff; SPEC'M 11/14/16 12:14 Test: WHITE BLOOD COUNT; Value: 5.2; Range: 4.0-10.0; Units: K/mm3; Status: F Test: RED BLOOD COUNT; Value: 3.64; Range: 4.00-5.40; Abnormal: Below low normal; Units: M/mm3; Status: F Test: HEMOGLOBIN; Value: 12.4; Range: 12.0-16.0; Units: g/dl; Status: F Test: HEMATOCRIT; Value: 38.0; Range: 36.0-47.0; Units: %; Status: F Test: MEAN CORPUSCULAR VOLUME; Value: 104.3; Range: 80.0-96.0; Abnormal: Above high normal; Units: fl; Status: F Test: MEAN CORPUSCULAR HEMOGLOBIN; Value: 34.0; Range: 27.0-33.0; Abnormal: Above high normal; Units: pg; Status: F Test: MEAN CORPUSCULAR HGB CONC; Value: 32.6; Range: 32.0-36.5; Units: g/dl; Status: F Test: RED CELL DISTRIBUTION WIDTH; Value: 15.3; Range: 11.5-14.5; Abnormal: Above high normal; Units: %; Status: F Test: PLATELET COUNT, AUTOMATED; Value: 279; Range: 150-450; Units: k/mm3; Status: F Test: NEUTROPHILS %; Value: 75.4; Range: 36.0-66.0; Abnormal: Above high normal; Units: %; Status: F Test: LYMPH %; Value: 14.1; Range: 24.0-44.0; Abnormal: Below low normal; Units: %; Status: F Test: MONO %; Value: 7.0; Range: 0.0-5.0; Abnormal: Above high normal; Units: %; Status: F Test: EOS %; Value: 0.2; Range: 0.0-3.0; Units: %; Status: F Test: BASO %; Value: 0.1; Range: 0.0-1.0; Units: %; Status: F Test: LARGE UNSTAINED CELL %; Value: 3.2; Range: 0.0-4.0; Units: %; Status: F Test: NEUTROPHILS #; Value: 4.0; Range: 1.8-7.7; Units: K/mm3; Status: F Test: LYMPH #; Value: 0.7; Range: 1.5-4.5; Abnormal: Below low normal; Units: K/mm3; Status: F Test: MONO #; Value: 0.4; Range: 0.0-0.8; Units: K/mm3; Status: F Test: EOS #; Value: 0.0; Range: 0.0-0.50; Units: K/mm3; Status: F Test: BASO #; Value: 0.0; Range: 0.0-0.2; Units: K/mm3; Status: F Test: LARGE UNSTAINED CELL #; Value: 0.2; Range: 0.0-0.4; Units: K/mm3; Status: F Lab Order: Cardiac Injury Profile; [facility] 11/14/16 12:14 Test: CPK CREATINE PHOSPHOKINASE; Value: 149; Range: 26-192; Units: U/L; Status: F Test: CK-MB VALUE MASS; Value: 5.2; Range: 0.0-3.6; Abnormal: Above high normal; Units: NG/ML; Status: F Test: MB/CK RELATIVE INDEX; Value: 3.48; Range: < OR =4; Status: F Test Note: ; DIAGNOSIS CRITERIA MMB ng/ml Relative Index (RI) NON-AMI < or = 5 N/A HAYES ZONE > 5 < or = 4 AMI > 5 > 4 Lab Order: Prothrombin Time Profile\E\INR; [facility] 11/14/16 12:14 Test: PROTHROMBIN TIME; Value: 17.0; Range: 12.3-14.5; Abnormal: Above high normal; Units: SECONDS; Status: F Test: INR; Value: 1.37; Status: F Test Note: ; THERAPUTIC HUMAN INR VALUES INDICATIONS NORMAL RANGES PROPHYLAXIS/TREATMENT OF: VENOUS THROMBOSIS 2.0-3.0 PULMONARY EMBOLISM 2.0-3.0 PREVENTION OF SYSTEMIC EMBOLISM FROM: TISSUE HEART VALVES 2.0-3.0 ACUTE MYOCARDIAL INFARCTION 2.0-3.0 VALVULAR HEART DISEASE 2.0-3.0 ATRIAL FIBRILLATION 2.0-3.0 MECHANICAL VALVES(HIGH RISK) 2.5-3.5 RECURRENT MYOCARDIAL INFARCTION 2.5-3.5 Lab Order: Troponin; [facility] 11/14/16 12:14 Test: TROPONIN I; Value: 0.17; Range: < 0.10; Abnormal: Above high normal; Units: NG/ML; Status: F Test Note: ; Troponin I Reference Interval for [employer] LOCI: 99th Percentile= 0.00-0.045 ng/ml Risk Stratification: <= 0.10 ng/ml Decreased Risk for Adverse Clinical Events. 0.10-1.50 ng/ml Increased Risk for Adverse Clinical Events. Evaluation of additional criterion and/or repeat testing in 2-6 hours is suggested to rule out myocardial damage. >= 1.50 ng/ml Indicative of Myocardial Injury. Lab Order: CARDIAC MARKER PANEL; [facility] 11/14/16 13:33 Test: CPK CREATINE PHOSPHOKINASE; Value: 136; Range: 26-192; Units: U/L; Status: F Test: CK-MB VALUE MASS; Value: 5.0; Range: 0.0-3.6; Abnormal: Above high normal; Units: NG/ML; Status: F Test: MB/CK RELATIVE INDEX; Value: 3.67; Range: < OR =4; Status: F Test: TROPONIN I; Value: 0.17; Range: < 0.10; Abnormal: Above high normal; Units: NG/ML; Status: F Test Note: ; DIAGNOSIS CRITERIA MMB ng/ml Relative Index (RI) NON-AMI < or = 5 N/A HAYES ZONE > 5 < or = 4 AMI > 5 > 4 Lab Order: DIGOXIN LEVEL; [facility] 11/14/16 12:14 Test: DIGOXIN LEVEL; Value: 1.7; Range: 0.5-2.0; Units: NG/ML; Status: F Lab Order: CARDIAC MARKER PANEL; [facility] 11/14/16 17:26 Test: CPK CREATINE PHOSPHOKINASE; Value: 145; Range: 26-192; Units: U/L; Status: F Test: CK-MB VALUE MASS; Value: 5.5; Range: 0.0-3.6; Abnormal: Above high normal; Units: NG/ML; Status: F Test: MB/CK RELATIVE INDEX; Value: 3.79; Range: < OR =4; Status: F Test: TROPONIN I; Value: 0.19; Range: < 0.10; Abnormal: Above high normal; Units: NG/ML; Status: F Test Note: ; DIAGNOSIS CRITERIA MMB ng/ml Relative Index (RI) NON-AMI < or = 5 N/A HAYES ZONE > 5 < or = 4 AMI > 5 > 4 Lab Order: COMPLETE BLOOD COUNT; [facility] 11/15/16 07:27 Test: WHITE BLOOD COUNT; Value: 6.2; Range: 4.0-10.0; Units: K/mm3; Status: F Test: RED BLOOD COUNT; Value: 3.51; Range: 4.00-5.40; Abnormal: Below low normal; Units: M/mm3; Status: F Test: HEMOGLOBIN; Value: 11.6; Range: 12.0-16.0; Abnormal: Below low normal; Units: g/dl; Status: F Test: HEMATOCRIT; Value: 38.5; Range: 36.0-47.0; Units: %; Status: F Test: MEAN CORPUSCULAR VOLUME; Value: 103.5; Range: 80.0-96.0; Abnormal: Above high normal; Units: fl; Status: F Test: MEAN CORPUSCULAR HEMOGLOBIN; Value: 32.9; Range: 27.0-33.0; Units: pg; Status: F Test: MEAN CORPUSCULAR HGB CONC; Value: 30.0; Range: 32.0-36.5; Abnormal: Below low normal; Units: g/dl; Status: F Test: RED CELL DISTRIBUTION WIDTH; Value: 16.9; Range: 11.5-14.5; Abnormal: Above high normal; Units: %; Status: F Test: PLATELET COUNT, AUTOMATED; Value: 207; Range: 150-450; Units: k/mm3; Status: F Lab Order: RENAL PROFILE; SPEC'M 11/15/16 07:27 Test: GLUCOSE, FASTING; Value: 72; Range: 83-110; Abnormal: Below low normal; Units: MG/DL; Status: F Test: BLOOD UREA NITROGEN; Value: 40; Range: 7-18; Abnormal: Above high normal; Units: MG/DL; Status: F Test: CREATININE FOR GFR; Value: 0.81; Range: 0.55-1.02; Units: MG/DL; Status: F Test: SODIUM LEVEL; Value: 144; Range: 136-145; Units: MEQ/L; Status: F Test: POTASSIUM SERUM; Value: 3.7; Range: 3.5-5.1; Units: MEQ/L; Status: F Test: CHLORIDE LEVEL; Value: 100; Range: 98-107; Units: MEQ/L; Status: F Test: CARBON DIOXIDE LEVEL; Value: 33; Range: 21-32; Abnormal: Above high normal; Units: MEQ/L; Status: F Test: ANION GAP; Value: 11; Range: 8-16; Units: MEQ/L; Status: F Test: CALCIUM LEVEL; Value: 8.2; Range: 8.8-10.2; Abnormal: Below low normal; Units: MG/DL; Status: F Test: PHOSPHORUS LEVEL; Value: 3.0; Range: 2.5-4.9; Units: MG/DL; Status: F Test: ALBUMIN; Value: 2.3; Range: 3.2-5.2; Abnormal: Below low normal; Units: GM/DL; Status: F Test Note: ; --- 11/15/16 1041 --- CO2 previously reported as: 33 H MEQ/L Lab Order: CARDIAC MARKER PANEL; SPEC'M 11/15/16 00:36 Test: CPK CREATINE PHOSPHOKINASE; Value: 335; Range: 26-192; Abnormal: High; Units: U/L; Status: F Test: CK-MB VALUE MASS; Value: 10.6; Range: 0.0-3.6; Abnormal: Above high normal; Units: NG/ML; Status: F Test: MB/CK RELATIVE INDEX; Value: 3.16; Range: < OR =4; Status: F Test: TROPONIN I; Value: 0.22; Range: < 0.10; Abnormal: Above high normal; Units: NG/ML; Status: F Test Note: ; DIAGNOSIS CRITERIA MMB ng/ml Relative Index (RI) NON-AMI < or = 5 N/A HAYES ZONE > 5 < or = 4 AMI > 5 > 4 Lab Order: CARDIAC MARKER PANEL; SPEC'M 11/15/16 11:58 Test: CPK CREATINE PHOSPHOKINASE; Value: 474; Range: 26-192; Abnormal: Above high normal; Units: U/L; Status: F Test: CK-MB VALUE MASS; Value: 10.7; Range: 0.0-3.6; Abnormal: Above high normal; Units: NG/ML; Status: F Test: MB/CK RELATIVE INDEX; Value: 2.25; Range: < OR =4; Status: F Test: TROPONIN I; Value: 0.18; Range: < 0.10; Abnormal: Above high normal; Units: NG/ML; Status: F Test Note: ; DIAGNOSIS CRITERIA MMB ng/ml Relative Index (RI) NON-AMI < or = 5 N/A HAYES ZONE > 5 < or = 4 AMI > 5 > 4 Lab Order: CARDIAC MARKER PANEL; SPEC'M 11/15/16 07:27 Test: CPK CREATINE PHOSPHOKINASE; Value: 424; Range: 26-192; Abnormal: Above high normal; Units: U/L; Status: F Test: CK-MB VALUE MASS; Value: 12.4; Range: 0.0-3.6; Abnormal: Above high normal; Units: NG/ML; Status: F Test: MB/CK RELATIVE INDEX; Value: 2.92; Range: < OR =4; Status: F Test: TROPONIN I; Value: 0.18; Range: < 0.10; Abnormal: Above high normal; Units: NG/ML; Status: F Test Note: ; DIAGNOSIS CRITERIA MMB ng/ml Relative Index (RI) NON-AMI < or = 5 N/A HAYES ZONE > 5 < or = 4 AMI > 5 > 4 Radiology Order: Chest, 2 View (pa\E\lat) Test: Chest, 2 View (pa\E\lat) REASON FOR EXAMINATION: Chest Pain; CHEST, TWO VIEWS:; ; HISTORY: Chest pain.; ; COMPARISON: 08/03/2015; ; A diffuse increased in interstitial markings is present in the lungs consistent; with chronic interstitial fibrosis. The cardiac silhouette is enlarged. The; pulmonary vasculature is normal in appearance. There are old compression; fractures of several mid and lower thoracic vertebral bodies. Degenerative change; is present in the thoracic spine.; ; IMPRESSION:; ; 1. Chronic interstitial fibrosis.; ; 2. Cardiomegaly.; ; ; Signed by; Marvin Munson MD 11/14/2016 02:13 P; Radiology Order: EKG-ADULT Test: EKG-ADULT REASON FOR EXAMINATION: Chest Pain; Stationary ECG Study; [facility] - ED; ; Test Date: 2016-11-14; Pat Name: CRISELDA CRAMER Department:; Room: -; Gender: F Transitions Manager: ct; : 1930 Requested By: Radha Kaiser; Order Number: [id number] Reading MD: Radha Kaiser; Measurements; Intervals [place]; Rate: 87 P:; CO: 0 QRS: 39; QRSD: 83 T: -85; QT: 331; QTc: 399; Interpretive Statements; ATRIAL FIBRILLATION; ST DEVIATION AND MODERATE T-WAVE ABNORMALITY, CONSIDER ANTERIOR ISCHEMIA; ST DEVIATION AND MODERATE T-WAVE ABNORMALITY, CONSIDER INFERIOR ISCHEMIA; ST CHANGES NEW 01/22/13 CLINICAL CORRELATION; Electronically Signed On 11-14-2016 20:24:34 EST by Radha Kaiser; Radiology Order: US Lower Extremity R/O DVT Test: US Lower Extremity R/O DVT REASON FOR EXAMINATION: swelling; DUPLEX EXTREMITY VENOUS ULTRASOUND: Left lower extremity.; ; HISTORY: Left leg swelling.; ; FINDINGS: The deep veins are anechoic and fully compressible from the groin to; the popliteal fossa in the left lower extremity. Color flow imaging is; homogeneous. Spectral Doppler interrogation demonstrates intact respiratory; variation in flow and normal manual augmentation of flow. There is no evidence; of deep vein thrombosis. Some atherosclerotic shadowing plaquing was seen from; arterial vessels. Soft tissue edema is noted in the popliteal soft tissues.; ; IMPRESSION: Negative left lower extremity duplex venous ultrasound. No evidence; of deep vein thrombosis.; ; ; Signed by; Joe Chatman MD 11/14/2016 03:01 P; Radiology Order: US Upper Extremity R/O DVT Test: US Upper Extremity R/O DVT REASON FOR EXAMINATION: swelling; RIGHT UPPER EXTREMITY DUPLEX VENOUS ULTRASOUND:; ; HISTORY: Right arm swelling.; ; FINDINGS: The right internal jugular, right subclavian, right axillary, right; brachial, and right basilic veins are anechoic and compressible in the right; upper extremity. The cephalic vein could not be visualized. Cephalic vein; thrombus cannot be excluded. No thrombosed venous structures directly; visualized.; ; IMPRESSION: Cephalic vein not visualized in the right arm. Cannot exclude; thrombosis of the right cephalic vein but no venous thrombosis was directly; visualized. Other veins normal.; ; ; Signed by; Joe Chatman MD 11/14/2016 03:00 P; Radiology Order: CT Chest Without Contrast Test: CT Chest Without Contrast REASON FOR EXAMINATION: Chest Pain; CT STUDY OF THE CHEST WITHOUT CONTRAST:; ; HISTORY: Chest pain.; ; Comparison chest CT study is from December 27, 2015.; ; CT FINDINGS: There is a diffuse interstitial fibrosis pattern in the lung nur; bilaterally. This is probably a little less prominent than on the CT study from; 12/27/2015. The thoracic aorta is normal in course and caliber and unchanged in; appearance. Some vascular calcification is seen including coronary artery; vascular calcification. No hilar or mediastinal mass or adenopathy is observed.; No pleural effusion is seen. No adrenal mass is seen. There is vascular; calcification in a multifocal fashion along the course of the splenic artery. I; cannot exclude splenic arterial aneurysms as there are several ring calcified; lesions along the course of the splenic artery. The largest of these measures; 1.9 cm in greatest diameter. These are unchanged. There are clips in the; gallbladder fossa on photographic equipment technician view. Bone window settings show degenerative disc; changes in the thoracic spine at multiple levels. 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 No; evidence of focal infiltrate or pleural effusion. Cardiomegaly with vascular; calcification. Stable vascular calcifications in the splenic artery. The; patient status post cholecystectomy.; ; ; Signed by; Joe Chatman MD 11/14/2016 03:01 P; Outcome: 15:06 Decision to Hospitalize by Provider. sd1 22:37 Discharge Assessment: Patient awake, alert and oriented x 3. No cognitive and/or cf2 functional deficits noted. Patient verbalized understanding of disposition instructions. Patient awake and alert. patient administered narcotics - no. The following High Risk Discharge criteria are identified: Yes, Admitted ER admission hold nurse. Condition: good. No special radiology studies were completed. Property :Personal belongings accompany Pt. 11/15 15:44 Patient left the ED. rs6 Signatures: Dispatcher [employer] EDMS Radha Kaiser MD MD sd1 Jose Hager RN RN dwStefani Sidhu, Jos Reg Jonel Wilson, RN RN mlb1 Pina Soliman,TIM RN kr3 Telly Alfonso, FISHING MANAGER FISHING MANAGER kb5 Carin Velásquez, FISHING MANAGER FISHING MANAGER ct3 Faby Fernandez, RN RN sls1 Andrew Sylvester jml1 Caty Davis cmb Aminta Bui, FISHING MANAGER FISHING MANAGER tmm1 Vera Couch,RN RN Jonel Ribera,RN RN mb9 Mariam Mathur, FISHING MANAGER FISHING MANAGER rs6 Vera Ayon Jennalee jp5 Caridad Hickman,RN RN kas2 Estella Quiroz,RN RN cf2 Corrections: (The following items were deleted from the chart) 11/14 14:48 14:45 DIGOXIN LEVEL+LAB sent. mlb1 EDMS 18:47 18:31 Pulse 68bpm; Monitor; Pulse Ox 76%; mlb1 mlb1 MTDD
[2016-11-15] MEDS: ACETAMINOPHEN TAB 650MG DOSE (2X325MG) PO PRN (18:37)
[2016-11-15] MEDS: NS 1,000 ML IV SCH (18:38)
[2016-11-15 20:00] VITALS: BP 128/62
[2016-11-15] MEDS: METOPROLOL TART 50 MG TAB PO SCH (21:07)
[2016-11-16 02:23] VITALS: BP 150/69
[2016-11-16] MEDS ORDERED: SLF 3 ML SYR IV PRN (02:30)
--- NOTE | 2016-11-16 02:43 | IPNPDOC ---
Assessment/Plan Date Seen The patient was seen on 11/15/16. Problems Problems: (1) Bradycardia Status: Acute Problem Text: Halved the patient's dose of metoprolol, with hold parameters. (2) Elevated troponin Status: Acute Problem Text: Overnight trended upward, then down again by the morning, as renal function improved. Will check another EKG. Certainly the patient's chest discomfort doesn't seem typical for a cardiac event, but her enzymes suggest cardiac injury. She is interested in seeing Dr. Elias. (3) Chest pain Status: Acute Problem Text: Lateral chest discomfort -- patient states "side pain" -- seems atypical for cardiac event. Certainly there seems some musculoskeletal component. (4) Atrial fibrillation Status: Chronic Problem Text: Will monitor rate control, as needed to reduce beta mili for bradycardia. Anticoagulated. She remains on digoxin. (5) Do not resuscitate Status: Chronic Problem Text: Discussed at length. MOLST form filled out and placed in patient 's chart. DNR ordered. (6) Acute kidney injury (nontraumatic) Status: Resolved Problem Text: Improved with gentle hydration. Will try to avoid nephrotoxins. NS DCed. Continue to monitor. Plan / VTE VTE Prophylaxis Ordered?: Yes Subjective Review of Systems CC/HPI The patient is a 86-year-old female admitted with a reason for visit of Chest Pain. Events since last encounter Patient seen on PCU. Overnight from 11/14 to 11/15 troponins trended up to a maximum of 0.22, then trended back down. Patient denying chest pain or shortness of breath. When asked if she hurts, she indicates her ankles, which are somewhat edematous, stating that the compression stockings are uncomfortable. When pressed, she agrees to bilateral side pain, reproducible to touch. Nurse notes bradycardia to the 40s when patient asleep. Constitutional: Denies: Fever Skin: Denies: Rash Pulmonary: Denies: Cough, Dyspnea Cardiovascular: Denies: Chest Pain Gastrointestinal: Denies: Constipation, Diarrhea, Nausea, Vomiting Musculoskeletal: Reports: Other Symptoms ("side pain" over lower lateral ribcage) Objective Physical Examination General Exam: Positive: Alert, Cooperative ENT Exam: Positive: Mucous membr. moist/pink Neck Exam: Positive: Supple Chest Exam: Positive: Clear to auscultation, Normal air movement, Other ( tender to palpate along lower lateral rib cage, more tender R side than L, no ecchymosis or erythema on skin) Heart Exam: Positive: Bradycardic, Irregular Rhythm Telemetry: Positive: Bradycardia Abdomen Exam: Positive: Normal bowel sounds Extremity Exam: Positive: Edema (mild, in bilat LE) Vital Signs/I&O Vital Signs Date Time Temp Pulse Resp B/P Pulse Ox O2 Delivery O2 Flow Rate FiO2 11/15/16 21:07 60 139/64 11/15/16 20:00 97.8 18 96 Nasal Cannula 2.0 I&O- Last 24 Hours up to 6 AM 11/16/16 06:00 Intake Total 600 ml Output Total 600 ml Balance 0 ml Laboratory Data Labs 24H Laboratory Tests 2 11/15/16 07:27: Albumin 2.3L, Blood Urea Nitrogen 40H, Creatinine 0.81, Sodium Level 144, Potassium Level 3.7, Chloride Level 100, Carbon Dioxide Level 33H, Anion Gap 11 , Calcium Level 8.2L, Creatine Kinase MB 12.4H, Creatine Kinase MB Relative Index 2.92, Phosphorus Level 3.0, Total Creatine Kinase 424H, Troponin I 0.18H 11/15/16 11:58: Creatine Kinase MB 10.7H, Creatine Kinase MB Relative Index 2.25, Total Creatine Kinase 474H, Troponin I 0.18H CBC/BMP Laboratory Tests 11/15/16 07:27 Anion Gap 11, Red Blood Count 3.51 L, Mean Corpuscular Volume 103.5 H, Mean Corpuscular Hemoglobin 32.9, Mean Corpuscular Hemoglobin Concent 30.0 L, Red Cell Distribution Width 16.9 H CHRISTOFER TOLBERT DO Nov 16, 2016 02:43
[2016-11-16 04:00] VITALS: BP 101/57
[2016-11-16] MEDS: SLF 3 ML SYR IV SCH ×3 (04:22→20:02)
[2016-11-16] MEDS: ACETAMINOPHEN TAB 650MG DOSE (2X325MG) PO PRN (04:22)
[2016-11-16 06:00] LABS: ALBUMIN 2.2 GM/DL (3.2-5.2); ANION GAP 6 MEQ/L (8-16); BLOOD UREA NITROGEN 26 MG/DL (7-18); CALCIUM LEVEL 8.1 MG/DL (8.8-10.2); CARBON DIOXIDE LEVEL 38 MEQ/L (21-32); CHLORIDE LEVEL 101 MEQ/L (98-107); CREATININE FOR GFR 0.72 MG/DL (0.55-1.02); GLOMERULAR FILTRATION RATE > 60.0 (>32); GLUCOSE, FASTING 75 MG/DL (83-110); PHOSPHORUS LEVEL 2.1 MG/DL (2.5-4.9); POTASSIUM SERUM 3.3 MEQ/L (3.5-5.1); SODIUM LEVEL 145 MEQ/L (136-145)
[2016-11-16 06:03] LABS: MEAN CORPUSCULAR HEMOGLOBIN 33.8 pg (27.0-33.0); MEAN CORPUSCULAR HGB CONC 30.4 g/dl (32.0-36.5); RED CELL DISTRIBUTION WIDTH 16.8 % (11.5-14.5); WHITE BLOOD COUNT 4.8 K/mm3 (4.0-10.0)
[2016-11-16 08:00] VITALS: BP 126/56
[2016-11-16] MEDS: OMEPRAZOLE 20 MG CAP PO SCH (08:42)
[2016-11-16] MEDS: CYANOCOBALAMIN 500 MCG TAB PO SCH (08:42)
[2016-11-16] MEDS: METOPROLOL TART 50 MG TAB PO SCH (08:42)
[2016-11-16] MEDS: DIGOXIN 0.125 MG TAB PO SCH (08:42)
[2016-11-16] MEDS: DABIGATRAN ETEXILATE 75 MG CAP (PRADAXA) PO SCH ×2 (08:42→20:01)
[2016-11-16] MEDS ORDERED: ASPIRIN 325 MG TAB PO SCH (09:00)
--- NOTE | 2016-11-16 10:31 | IPNPDOC ---
Assessment/Plan Date Seen The patient was seen on 11/16/16. Problems Problems: (1) Chest pain Status: Acute Problem Text: Clearly pain has not been cardiac in nature describing as lateral chest "ache" replicated by pressure. Nevertheless, no explanation for T -I to 0.22 and CPK 474 c index 2.3. More concerning are marked new repolarization abnormalities with new anterior/inferior T wave inversion and new V2-V4 1-1.[address] depression by 11/14/2016 12:06 EKG c/w 01/23/2012. Therefore, changed to HI statin, added aspirin and pushed BB and Dr. Fowler consulted t/c catherization vs outpatient NST. TTE, serial enzymes ordered. (2) Bradycardia Status: Acute Problem Text: . 11/16 HR 90-100 on 50 BID; therefore, increased to 75 BID, hold HR <50 (3) Elevated troponin Status: Acute Problem Text: as per chest pain (4) Atrial fibrillation Status: Chronic Problem Text: rate controlled on BB and digoxin anticoagulated c dabigatrin (5) Do not resuscitate Status: Chronic Problem Text: Discussed at length. MOLST form filled out and placed in patient 's chart. DNR ordered. (6) Anemia, macrocytic Status: Chronic Response to Treatment: Worse Problem Text: caution on dabigatran and aspirin 11/16 10.6 baseline hgb 11-12 Plan / VTE VTE Prophylaxis Ordered?: Yes Disposition Transfer to the floor, await PT eval, anticipate home tomorrow. Subjective Review of Systems CC/HPI Pt is c/o B ankle pain this morning which is chronic in nature. She states that she still has thepain in her chest which prompted her to come to the hospital. The pain is in B chest, worse with movement and when touched, deep breathing can worsen it as well. Denies falls. General: Denies: Fatigue Constitutional: Denies: Chills, Fever ENT: Denies: Head Aches Pulmonary: Denies: Cough, Dyspnea Cardiovascular: Reports: Chest Pain, Denies: Palpitations Gastrointestinal: Denies: Diarrhea, Nausea, Vomiting Neurological: Denies: Weakness Psych: Reports: Mood Normal Objective Physical Examination General Exam: Positive: Alert, Cooperative ENT Exam: Positive: Mucous membr. moist/pink Neck Exam: Positive: Supple Chest Exam: Positive: Clear to auscultation, Normal air movement, Other ( tender to palpate along lower lateral rib cage, more tender R side than L, no ecchymosis or erythema on skin) Heart Exam: Positive: Bradycardic, Irregular Rhythm Telemetry: Positive: Bradycardia Abdomen Exam: Positive: Normal bowel sounds Extremity Exam: Positive: Edema (Trace BLE) Vital Signs/I&O Vital Signs Date Time Temp Pulse Resp B/P Pulse Ox O2 Delivery O2 Flow Rate FiO2 11/16/16 08:42 100 126/56 11/16/16 08:00 95.0 20 99 Nasal Cannula 2.0 I&O- Last 24 Hours up to 6 AM 11/16/16 06:00 Intake Total 1485 ml Output Total 850 ml Balance 635 ml Laboratory Data Labs 24H Laboratory Tests 2 11/15/16 11:58: Creatine Kinase MB 10.7H, Creatine Kinase MB Relative Index 2.25, Total Creatine Kinase 474H, Troponin I 0.18H 11/16/16 05:33: Albumin 2.2L, Blood Urea Nitrogen 26H, Creatinine 0.72, Sodium Level 145, Potassium Level 3.3L, Chloride Level 101, Carbon Dioxide Level 38H, Anion Gap 6L , Calcium Level 8.1L, Glomerular Filtration Rate > 60.0, Phosphorus Level 2.1#L CBC/BMP Laboratory Tests 11/16/16 05:33 Anion Gap 6 L, Red Blood Count 3.15 L, Mean Corpuscular Volume 111.0 #H, Mean Corpuscular Hemoglobin 33.8 H, Mean Corpuscular Hemoglobin Concent 30.4 L, Red Cell Distribution Width 16.8 H YOHANNES QUINTANA PA-C Nov 16, 2016 10:31 Griffin Villareal M.D. Nov 16, 2016 15:05
[2016-11-16 12:00] VITALS: BP 121/60
[2016-11-16] MEDS ORDERED: POTASSIUM CHLORIDE 10% LIQ 20 MEQ/15 ML UDC PO ONE (12:15)
[2016-11-16] MEDS: ATORVASTATIN 20 MG TAB PO SCH (13:34)
[2016-11-16 15:35] VITALS: BP 119/57
[2016-11-16 15:47] LABS: FERRITIN 86 NG/ML (8-252); PERCENT SATURATION 10.4 % (13.2-37.4); TOTAL IRON BINDING CAPACITY 230 UG/DL (250-450); TOTAL PROTEIN 5.1 GM/DL (6.4-8.2)
[2016-11-16 15:53] LABS: VITAMIN B12 LEVEL > 2000 PG/ML (247-911)
--- NOTE | 2016-11-16 19:12 | ECHO ---
DATE OF PROCEDURE: 11/16/2016 REFERRING PHYSICIAN: Dr. Mancera and Dr. Bowie INDICATION: Congestive heart failure, atrial fibrillation, abnormal EKG. HEIGHT: 150 cm WEIGHT: 60 kg. DIMENSIONS: IVS: 1.2 LV: 3.5 LVPW: 1.1 LA: 4.3 Aorta: 3.0 FINDINGS: Study is of acceptable technical quality. Left ventricle is of normal size and hyperdynamic contractility. Estimated left ventricle ejection fraction (LVEF) 65-70%. Right ventricle is also normal size and systolic function. Severe biatrial enlargement. Aortic valve was relatively poorly visualized. It is heavily sclerotic and some restriction of cusp mobility. Mitral valve also exhibits degenerative abnormalities but mobility seems preserved. Tricuspid valve is normal. Pulmonic valve was not well seen. No pericardial effusion is noted. Inferior vena cava is dilated and there is no appreciable collapse with respiration indicative of very high central venous pressure. Aortic root is normal. Aortic arch and abdominal aorta were not visualized. Doppler interrogation reveals approximately moderate aortic stenosis. Peak gradient across the aortic valve is 34 and mean gradient 60 mmHg. No insufficiency is noted. There is no significant mitral stenosis or insufficiency. There is mild to moderate tricuspid insufficiency. Calculated pulmonary artery pressure is at least in low 50s and probably higher corresponding to at least moderate pulmonary hypertension. Evaluation of diastolic function is inconclusive due to presence of atrial fibrillation. Tissue Doppler velocities of mitral annulus though are very low indicative of advanced diastolic dysfunction. CONCLUSIONS: 1. Study is of acceptable technical quality. 2. Normal left ventricle (LV) size and systolic function. 3. Moderate aortic stenosis. 4. No significant mitral valve disease. 5. High central venous pressure. 6. At least moderate and probably moderately severe pulmonary hypertension. 7. Severe biatrial enlargement. COMMENT: Subacute bacterial endocarditis (SBE) prophylaxis is not recommended.
[2016-11-16] MEDS: METOPROLOL TARTRATE 100 MG TAB PO SCH (20:01)
--- NOTE | 2016-11-16 20:22 | CR ---
DATE OF CONSULTATION: 11/16/2015 REFERRING PHYSICIAN: Dr. Griffin Villareal INDICATION: Abnormal ECG, troponin elevation. HISTORY OF PRESENT ILLNESS: Mrs. Rojas is known to me. She is a very pleasant 86-year-old female who has a history of mild aortic stenosis, chronic atrial fibrillation and peripheral vascular disease principally affecting carotid arteries. She presented to hospital complaining about chest discomfort and generalized weakness. She reports a history that approximately 1 week prior to admission she was taken by her sons for dinner and as she was being taken in and out of the truck she was carried and apparently she felt that her ribs were squeezed too tightly and she has had intermittent sharp pains since. She localizes the pain over the lateral aspects of lower ribs, both on the right and left side. She also reported that she had progressive weakness that eventually reached the point that it was very difficult for her to ambulate. She had anorexia and has a feeling that she had dysphasia as she was trying to swallow pills. Since she was admitted to this facility there were some adjustments on her medications. She had outpatient 100 mg twice a day metoprolol that was initially reduced to 50 twice a day and then increased to 75 twice a day. She was also not given any diuretics because it was initially felt that she was quite dehydrated. I was asked by Dr. Villareal to see the patient and provide some guidance about further management because there is concern about her repolarization abnormalities on EKG. On the chart so far we have had three EKGs , the initial one is from 11/14/2016, that revealed atrial fibrillation with ventricular rate 87 beats per minute and there are T-wave inversions virtually in all leads that are fairly substantial especially in leads V2-V5 at least 2 mm downsloping. The shape of the T-wave inversion though seems to be rather typical for digoxin effect. Subsequent EKG on 11/16/2016 at 0644 hours and then at 1419 hours continues to have signal abnormalities but not as prominent. She was initially quite bradycardic but then with reduction of her beta mili this problem has improved. At the bedside the patient tells me that she still does not feel well. She denies any dyspnea and she denies any chest discomfort other than pain over her lower ribs that is typically aggravated with certain motion. She feels that the dysphasia that she had at home improved while her food is being pureed and finally she complains about pain in her ankles, more on the right than left. PAST MEDICAL HISTORY: 1. Chronic atrial fibrillation. 2. Mild aortic stenosis. 3. History of left carotid endarterectomy with known peripheral vascular disease and history of TIA in 2007. 4. Chronic anemia and iron deficiency. 5. Peripheral vascular disease (PVD) of lower extremities. She had significantly decreased ankle brachial index on the right that was measured at 0.6 in 2014. 6. Hyperlipidemia. OUTPATIENT MEDICATIONS: - iron supplement twice a day - digoxin 0.125 once a day - Lasix 40 a day - metoprolol 100 twice a day - omeprazole 20 a day - Pradaxa 75 twice a day - vitamin B12 - Zocor 40 a day SURGICAL HISTORY: Positive for appendectomy, cholecystectomy, hysterectomy and left carotid endarterectomy. FAMILY HISTORY: Positive for cancer in her father who young and also testicular cancer in her son. We do not have any first-degree relatives with early coronary artery disease (CAD). SOCIAL HISTORY: Patient is retired. She lives in the house of one or her sons. No history of smoking and no alcohol use. REVIEW OF SYSTEMS: She denies any recent fever, chills. She has had intermittent nausea and dysphagia as per history of present illness. She does not believe that she lost any weight. There was no chest discomfort until the pain described in history of present illness. No paroxysmal nocturnal dyspnea (PND), orthopnea. No abdominal pain. No diarrhea. No peripheral edema. She has been complaining of pain in her heels more since she has been in the hospital, also generalized weakness has been present for at least a couple weeks. PHYSICAL EXAMINATION: Mrs. Rojas is an 86-year-old female who appears approximately her age. She appears certainly much worse than I am used to seeing her, a lot more frail, but she is still oriented and appropriate. The last set of vital signs reveal blood pressure 119/57, heart rate 70, during my exam though was higher at 90. She is afebrile. Saturation is 100% on 2 liters of oxygen by nasal cannula. Her weight was documented as 60.3 kg. Her jugular venous pressure (JVP) does not appear grossly elevated by physical exam. Lungs reveal fine crackles throughout, not very prominent, good air movement. No wheezing. Heart exam reveals irregularly irregular rhythm. There is harsh systolic ejection murmur over the aortic valve area approximately 3/6 intensity. I also appreciate a holosystolic murmur just left from her sternum. Abdomen is soft. There is very prominent tenderness over lower ribs on both sides. No hepatosplenomegaly. No guarding or rebound tenderness. There is no peripheral edema. Peripheral pulses are poor principally in right lower extremity and there is some redness to the skin overlying her left heel. I do not appreciate any trophic defects. Neurologically, there is generalized weakness but no focal weakness. LABORATORY DATA: Basic metabolic panel as of today, sodium 145, potassium 3.3, creatinine 0.7, GFR more than 60, glucose 75, calcium 8.1, phosphorus 2.1, iron 24, TIBC 244. Saturation only 10%. She had multiple CKs, CK-MBs drawn, which both are mildly elevated with negative relative index. Her troponin is mildly elevated without appreciable trend between 0.17 and 0.22. Lipid panel: cholesterol 112, triglyceride 126, LDL 38 and HDL 48. Vitamin B12 is over 2000. CBC: Hemoglobin 10.6, hematocrit 35 and platelet count 221,000. Her digoxin level today was 1.8. Chest x-ray reveals calcifications in the vasculature and diffuse fibrotic abnormalities. No effusions. CT of the chest was identical, there are very prominent calcifications in coronary artery and also in the thoracic aorta. She had lower extremity Doppler and upper extremity Doppler looking for deep venous thrombosis (DVT) which was negative. An echocardiogram earlier today revealed hyperdynamic LV systolic function with ejection fraction (EF) around 70%. [id number] aortic stenosis and severe biatrial enlargement consistent with chronic atrial fibrillation. IVC was markedly dilated and there was at least moderate pulmonary hypertension. ASSESSMENT/PLAN: Mrs. Rojas is an elderly female. She has extensive peripheral vascular disease , but so far has not had any history of coronary artery disease, at least clinically. There is no doubt in my mind that she certainly does have underlying coronary artery disease (CAD), but I do not believe that it has anything to do with her current presentation. I am not quite certain how to explain mildly elevated troponin but there is no appreciable trend so I do not believe that this is consistent with acute coronary syndrome. Also her repolarization abnormalities are nonspecific and I believe most likely attributable to digoxin. I certainly do not plan to transfer her for cardiac catheterization as her generalized frailness seems to dominate her clinical picture. I actually decided to discontinue her aspirin considering her iron deficiency and also reported allergy to aspirin that reportedly caused hives in past. As far as atrial fibrillation is concerned, I am going to cut down the digoxin to just 5 days a week and will increase the dose of metoprolol to 100 mg twice a day again. If she should have episodes of bradycardia then I would recommend to discontinue digoxin before cutting down the dose of metoprolol. Digoxin is clinically a lot more dangerous medication than metoprolol and if heart rate get bradycardic, I would eliminate it first. I would continue chronic anticoagulation as is being done. Even though she is iron deficient there is no history of overt gastrointestinal (GI) bleeding. Next problem is her generalized weakness. I am not quite certain what is the underlying problem. It does not appear that she is grossly volume overloaded even though I do not doubt that she has chronic diastolic congestive heart failure. At this point I am going to wait another day with introduction of diuretics, but I believe that they should be introduced based on periodic evaluation of her volume. As far as peripheral vascular disease is concerned, she does have some redness over her heels, which I think is probably related to pressure. I still do feel pulses peripherally even though they are week. I do not plan any particular evaluation in this matter in this acute setting. JOSE
[2016-11-16] MEDS ORDERED: METOPROLOL TART 50 MG TAB PO SCH (21:00)
[2016-11-16 22:00] VITALS: BP 143/70
--- NOTE | 2016-11-17 01:06 | ECGEPIP ---
Stationary ECG Study [facility] Test Date: 2016-11-16 Pat Name: CELIA CRAMER Department: Room: [place] [address] Gender: F Reconciler: VIVI : 1930 Requested By: CHRISTOFER TOLBERT Order Number: [id number] Reading MD: León Fowler Measurements Intervals [place] Rate: 83 P: [place]: 0 QRS: 39 QRSD: 98 T: -50 QT: 346 QTc: 407 Interpretive Statements ATRIAL FIBRILLATION. RSr in V1.V2 ST DEVIATION AND MODERATE T-WAVE ABNORMALITY, CONSIDER ANTERIOR ISCHEMIA No REMARKABLE CHANGES SINCE 11/14/16 AT 12:06:33 Electronically Signed On 11-17-2016 1:06:02 EST by León Fowler
--- NOTE | 2016-11-17 01:12 | ECGEPIP ---
Stationary ECG Study [facility] Test Date: 2016-11-16 Pat Name: CELIA CRAMER Department: Room: [place] [address] Gender: F Dependency Director: VIVI : 1930 Requested By: Griffin HADDAD Order Number: [id number] Reading MD: León Fowler Measurements Intervals [place] Rate: 76 P: [place]: 0 QRS: 51 QRSD: 90 T: -34 QT: 389 QTc: 440 Interpretive Statements ATRIAL FIBRILLATION. RSr IN V1/V2 POSSIBLE RIGHT VENTRICULAR CONDUCTION DELAY NONSPECIFIC ST & T-WAVE ABNORMALITY LAST TRACING ON 11/16/16 AT 6:44:47. NO SIGNIFICANT CHANGES Electronically Signed On 11-17-2016 1:12:11 EST by León Fowler
[2016-11-17] MEDS: SLF 3 ML SYR IV SCH ×3 (05:15→21:46)
[2016-11-17 06:00] VITALS: BP 121/58
[2016-11-17 06:49] LABS: MEAN CORPUSCULAR HEMOGLOBIN 33.7 pg (27.0-33.0); MEAN CORPUSCULAR HGB CONC 31.6 g/dl (32.0-36.5); MEAN CORPUSCULAR VOLUME 106.6 fl (80.0-96.0); RED CELL DISTRIBUTION WIDTH 16.6 % (11.5-14.5); WHITE BLOOD COUNT 6.9 K/mm3 (4.0-10.0)
[2016-11-17 07:01] LABS: ANION GAP 7 MEQ/L (8-16); BLOOD UREA NITROGEN 18 MG/DL (7-18); CALCIUM LEVEL 8.2 MG/DL (8.8-10.2); CARBON DIOXIDE LEVEL 37 MEQ/L (21-32); CHLORIDE LEVEL 100 MEQ/L (98-107); CREATININE FOR GFR 0.68 MG/DL (0.55-1.02); GLOMERULAR FILTRATION RATE > 60.0 (>32); GLUCOSE, FASTING 94 MG/DL (83-110); MAGNESIUM LEVEL 1.9 MG/DL (1.8-2.4); PHOSPHORUS LEVEL 1.9 MG/DL (2.5-4.9); POTASSIUM SERUM 3.6 MEQ/L (3.5-5.1); SODIUM LEVEL 144 MEQ/L (136-145)
--- NOTE | 2016-11-17 09:57 | IPNPDOC ---
[facility] Cardiology Progress Note Date of Service/Time The patient was seen on 11/17/16 at 09:38. Cardiology Progress Note SUBJECTIVE: Ms Rojas was seen and examined at bedside this AM, she reports still not feeling well. States that she is still having b/l upper quadrant pain where she was apparently "squeezed" too tightly days prior when one of her sons was trying to assist her out of their truck. She denies SOB or palpitations and chest pain. She was upset this morning at her breakfast arriving late and not getting much sleep the night prior due to frequent awakenings from nursing staff. OBJECTIVE: Ms. Rojas seemed fatigued this morning, although she did not appear uncomfortable. She had pain she described b/l in both abdominal quadrants and also when a stethoscope was placed at the pulmonic listening post just lateral to the left of the sternum. She denied chest pain, SOB or palpitations. PHYSICAL EXAMINATION: VITAL SIGNS: Please see below. GENERAL APPEARANCE: sitting upright in bed at a 45 degree incline, eating her breakfast, does not appear in distress. HEENT: NCAT, EOMI, nares patent b/l, tongue midline, moist mucus membranes. NO JVD appreciated. LUNGS: CTA b/l, minimally diminished air expansion b/l, no wheezing, rhonchi or rales appreciated HEART: normal s1,s2, no gallops, rubs appreciated, aortic stenosis systolic murmur +2. Rate in the 70's. ABDOMEN: soft, non distended, tender to palpitation in RUQ and LUQ. NABSx4. SKIN: intact EXTREMITIES: no cyanosis, clubbing or edema appreciated NEUROLOGICAL: no focal deficits appreciated, does appear a bit fatigued PSYCHIATRIC: affect is appropriate LABORATORY WORK: Please see below. ASSESSMENT AND PLAN: Ms Rojas still seems to be complaining of some upper quadrant pain b/l. Unsure at this time as to etiology of this pain. Her ECHO revealed a large IVC<, although interestingly on physical exam she is not fluid overloaded. Would continue current metoprolol and digoxin therapy as discussed one day prior in note, however if patient becomes bradycardic, would consider stopping Digoxin therapy before the beta mili. Her heart rate has been appropriate in the 60- 70's as of late. Would continue current anticoagulation therapy. NO further recommendations at this time. Vital Signs/I&O VS/I&O Vital Signs Date Time Temp Pulse Resp B/P Pulse Ox O2 Delivery O2 Flow Rate FiO2 11/17/16 06:00 96.9 60 17 121/58 99 Nasal Cannula 2.0 I&O- Last 24 Hours up to 6 AM 11/17/16 05:59 Intake Total 1080 ml Output Total 550 ml Balance 530 ml Laboratory Data 24H LABS Laboratory Tests 2 11/16/16 12:27: Ferritin 86, Iron Level 24L, Total Iron Binding Capacity 230L, Total Protein 5.1L, Transferrin % Saturation 10.4L, Vitamin B12 Level > 2000H 11/16/16 12:32: Triglycerides Level 126, Cholesterol Level 112, HDL Cholesterol 48, LDL Cholesterol 38.8, Cholesterol/HDL Ratio 2.333, Creatine Kinase MB 6.3H, Creatine Kinase MB Relative Index 2.68, Digoxin Level 1.8, Non-HDL Cholesterol ( LDL + VLDL) 64, Total Creatine Kinase 235H, Troponin I 0.19H 11/17/16 06:22: Troponin I 0.18H, Albumin 2.0L, Blood Urea Nitrogen 18, Creatinine 0.68, Sodium Level 144, Potassium Level 3.6, Chloride Level 100, Carbon Dioxide Level 37H, Anion Gap 7L, Calcium Level 8.2L, Glomerular Filtration Rate > 60.0, Magnesium Level 1.9, Phosphorus Level 1.9L CBC/BMP Laboratory Tests 11/17/16 06:22 Anion Gap 7 L, Red Blood Count 3.01 L, Mean Corpuscular Volume 106.6 H, Mean Corpuscular Hemoglobin 33.7 H, Mean Corpuscular Hemoglobin Concent 31.6 L, Red Cell Distribution Width 16.6 H Microbiology Microbiology 11/16/16 Stool Occult Blood (JOSSUE) - Final, Complete GME ATTESTATION GME ATTESTATION My preceptor for this patient encounter was physically present in the building during the encounter and was fully available. As needed, all aspects of the patient interview, examination, medical decision making process, and medical care plan development were reviewed and approved by the preceptor. Preceptor is aware and concurs with the plan as stated in the body of this note and will attest to such by his/her cosignature. DWIGHT SILVA DO Nov 17, 2016 09:57
[2016-11-17] MEDS: ATORVASTATIN 20 MG TAB PO SCH (10:32)
[2016-11-17] MEDS: METOPROLOL TARTRATE 100 MG TAB PO SCH ×2 (10:32→21:46)
[2016-11-17] MEDS: FERROUS SULFATE 325MG TAB PO SCH (10:33)
[2016-11-17] MEDS: DABIGATRAN ETEXILATE 75 MG CAP (PRADAXA) PO SCH ×2 (10:33→21:46)
[2016-11-17] MEDS: OMEPRAZOLE 20 MG CAP PO SCH (10:33)
[2016-11-17] MEDS: CYANOCOBALAMIN 500 MCG TAB PO SCH (10:33)
[2016-11-17] MEDS: ACETAMINOPHEN TAB 650MG DOSE (2X325MG) PO PRN (10:37)
[2016-11-17 14:00] VITALS: BP 127/75
--- NOTE | 2016-11-17 16:01 | IPNPDOC ---
Assessment/Plan Date Seen The patient was seen on 11/17/16. Problems Problems: (1) Chest pain Status: Acute Problem Text: 11/17 T 0.18, appreciate Dr. Elias opinion-he favors repolarization abnormalities are 2 digoxin (although changes were present at level 1.7, moreso resolved at 1.8). Would favor outpatient NST at least 11/16/16 TTE-Curt Normal left ventricle (LV) size and systolic function. 3. Moderate aortic stenosis. 4. No significant mitral valve disease. 5. High central venous pressure. 6. At least moderate and probably moderately severe pulmonary hypertension. 7. Severe biatrial enlargement. Clearly pain has not been cardiac in nature describing as lateral chest "ache" replicated by pressure. Nevertheless, no explanation for T-I to 0.22 and CPK 474 c index 2.3. More concerning are marked new repolarization abnormalities with new anterior/inferior T wave inversion and new V2-V4 1-1.[address] depression by 11/14/2016 12:06 EKG c/w 01/23/2012. Therefore, changed to HI statin , added aspirin and pushed BB and Dr. Fowler consulted t/c catherization vs outpatient NST. TTE, serial enzymes ordered. (2) Diastolic CHF Status: Acute Problem Text: favor at best "dry" weight we can obtain without OH risk hector given moderate (3) Bradycardia Status: Acute Problem Text: 11/17 decreased dig 0.125 5D qW and metoprolol back to 100 BID-HR 60-70s 11/16 HR 90-100 on 50 BID; therefore, increased to 75 BID, hold HR <50 (4) Elevated troponin Status: Acute Problem Text: as per chest pain (5) Atrial fibrillation Status: Chronic Problem Text: rate controlled on BB and digoxin anticoagulated c dabigatrin (6) Do not resuscitate Status: Chronic Problem Text: Discussed at length. MOLST form filled out and placed in patient 's chart. DNR ordered. (7) Anemia, macrocytic Status: Chronic Response to Treatment: Worse Problem Text: caution on dabigatran 11/17 10.1, 107, B12 >2000, 10%, 86 (favoring ACD) 11/16 10.6 baseline hgb 11-12 Plan / VTE VTE Prophylaxis Ordered?: Yes Plan Anticipated Discharge: Home (11/16 not safe pr PT) Subjective Review of Systems CC/HPI The patient is a 86-year-old female admitted with a reason for visit of Chest Pain. Objective Physical Examination General Exam: Positive: Alert, Cooperative ENT Exam: Positive: Mucous membr. moist/pink Neck Exam: Positive: Supple Chest Exam: Positive: Clear to auscultation, Normal air movement, Other ( tender to palpate along lower lateral rib cage, more tender R side than L, no ecchymosis or erythema on skin) Heart Exam: Positive: Bradycardic, Irregular Rhythm Telemetry: Positive: Bradycardia Abdomen Exam: Positive: Normal bowel sounds Extremity Exam: Positive: Edema (Trace BLE) Vital Signs/I&O Vital Signs Date Time Temp Pulse Resp B/P Pulse Ox O2 Delivery O2 Flow Rate FiO2 11/17/16 06:00 96.9 60 17 121/58 99 Nasal Cannula 2.0 I&O- Last 24 Hours up to 6 AM 11/17/16 06:00 Intake Total 1080 ml Output Total 550 ml Balance 530 ml Laboratory Data Labs 24H Laboratory Tests 2 11/17/16 06:22: Albumin 2.0L, Blood Urea Nitrogen 18, Creatinine 0.68, Sodium Level 144, Potassium Level 3.6, Chloride Level 100, Carbon Dioxide Level 37H, Anion Gap 7L , Calcium Level 8.2L, Glomerular Filtration Rate > 60.0, Magnesium Level 1.9, Phosphorus Level 1.9L, Troponin I 0.18H CBC/BMP Laboratory Tests 11/17/16 06:22 Anion Gap 7 L, Red Blood Count 3.01 L, Mean Corpuscular Volume 106.6 H, Mean Corpuscular Hemoglobin 33.7 H, Mean Corpuscular Hemoglobin Concent 31.6 L, Red Cell Distribution Width 16.6 H Microbiology Microbiology 11/16/16 Stool Occult Blood (JOSSUE) - Final, Complete Griffin Villareal M.D. Nov 17, 2016 16:01
--- NOTE | 2016-11-17 16:45 | EDDOCDS ---
Physician Documentation [facility] Name: Criselda Rojas Age: 86 yrs Sex: Female : 1930 Arrival Date: 11/14/2016 Time: 11:07 Bed Admit Hold Private MD: Marly Benítez M Disposition: 11/14/16 15:06 Hospitalization ordered by Moe Bowie for Inpatient Admission. Preliminary diagnosis is Other chest pain. - Bed requested for PCU. - Status is Inpatient Admission. rs6 - Condition is Stable. - Problem is new. - Symptoms are unchanged. Historical: - Allergies: Aspirin; Ibuprofen; Morphine; - Home Meds: 1. furosemide 20 mg oral tab 2 times per day 2. Pradaxa 75 mg oral cap 2 times per day 3. omeprazole 20 mg Oral cpDR once daily 4. digoxin 125 mcg Oral tab once daily 5. metoprolol tartrate 100 mg Oral tab 2 times per day 6. Iron CR 65 mg Oral daily 7. simvastatin 40 mg Oral tab once daily - PMHx: Hypertension; CAD; Atrial Fib; Hypercholesterolemia; - PSHx: Appendectomy; Hysterectomy; Carotid surgery; D & C; Cholecystectomy; - Social history: Smoking status: Patient states was never smoker of tobacco. No barriers to communication noted, The patient speaks fluent [place], Speaks appropriately for age. - Family history: Not pertinent. - : The pt / caregiver states he / she is on anticoagulants: Pradaxa (Dabigatran) Home medication list is obtained from the patient. - Exposure Risk Screening:: None identified. Vital Signs: 11/14 11:10 BP 120 / 57; Pulse 79; Resp 16; Temp 96.1; Pulse Ox 94% ; Weight 68.04 kg / 150 lbs; cmb Height 4 ft. 11 in. (149.86 cm); Pain 10/10; 17:31 BP 116 / 51 (auto/); mlb1 17:31 Pulse 84 MON; Pulse Ox 95% ; mlb1 17:46 BP 78 / 43 (auto/); mlb1 17:46 Pulse 80 MON; Pulse Ox 100% ; mlb1 17:48 BP 81 / 53 (auto/); mlb1 17:48 Pulse 80 MON; Pulse Ox 100% ; mlb1 17:51 BP 88 / 67 (auto/); mlb1 17:52 BP 108 / 52 (auto/); mlb1 17:52 Pulse 76 MON; Pulse Ox 100% ; mlb1 17:53 Pulse 82 MON; Pulse Ox 100% ; mlb1 18:01 BP 99 / 49 (auto/); mlb1 18:01 Pulse 74 MON; Pulse Ox 100% ; mlb1 18:16 BP 101 / 68 (auto/); mlb1 18:16 Pulse 70 MON; Pulse Ox 100% ; mlb1 18:31 BP 149 / 59 (auto/); mlb1 18:46 BP 104 / 53 (auto/); kas2 18:46 Pulse 74 MON; Pulse Ox 100% ; kas2 18:46 Resp 18; Temp 97.9; kas2 18:47 Pulse Ox 100% on 2 lpm NC; mlb1 19:01 BP 94 / 44 (auto/); kas2 19:01 Pulse 58 MON; Pulse Ox 98% ; kas2 19:16 BP 114 / 58 (auto/); kas2 19:16 Pulse 62 MON; Pulse Ox 100% ; kas2 19:31 BP 98 / 49 (auto/); kas2 19:31 Pulse 64 MON; Pulse Ox 100% ; kas2 19:46 BP 100 / 51 (auto/); kas2 19:46 Pulse 54 MON; Pulse Ox 100% ; kas2 20:01 BP 110 / 77 (auto/); kas2 20:01 Pulse 62 MON; Pulse Ox 100% ; kas2 20:16 BP 104 / 51 (auto/); kas2 20:16 Pulse 60 MON; Pulse Ox 100% ; kas2 20:31 BP 124 / 61 (auto/); kas2 20:31 Pulse 66 MON; Pulse Ox 100% ; kas2 11:10 Body Mass Index 30.30 (68.04 kg, 149.86 cm) cmb MDM: 12:02 Talent Director/Pulse Ox/q 30 min VS ordered. sd1 12:02 IV Saline Lock ordered. sd1 12:02 Rhythm Strip to chart ordered. sd1 12:02 Undress patient appropriately for examination ordered. sd1 12:02 Acetaminophen Tablet 650 mg PO once ordered. sd1 12:02 Chest, 2 View (pa\E\lat) Ordered. EDMS 12:02 Basic Metabolic Profile Ordered. EDMS 12:02 CBC with Diff Ordered. EDMS 12:02 Cardiac Injury Profile Ordered. EDMS 12:02 Prothrombin Time Profile\E\INR Ordered. EDMS 12:03 Troponin Ordered. EDMS 12:03 ECG WITH READING ER PHYS+CARDIAG ordered. EDMS 12:07 US Lower Extremity R/O DVT Ordered. EDMS 12:07 US Upper Extremity R/O DVT Ordered. EDMS 12:51 Basic Metabolic Profile Reviewed. sd1 12:51 CBC with Diff Reviewed. sd1 12:51 Cardiac Injury Profile Reviewed. sd1 12:51 Prothrombin Time Profile\E\INR Reviewed. sd1 12:51 Troponin Reviewed. sd1 13:23 Redraw CIP &Troponin (put time in details section) ordered. sd1 13:25 CT Chest Without Contrast Ordered. EDMS 13:30 Redraw CIP &Troponin (put time in details section) complete. jml1 13:32 CARDIAC MARKER PANEL Ordered. EDMS 14:12 Misc Sealer Operator Order ordered. sd1 14:19 CARDIAC MARKER PANEL Reviewed. sd1 14:19 Chest, 2 View (pa\E\lat) Reviewed. sd1 14:19 US Lower Extremity R/O DVT Reviewed. sd1 14:19 US Upper Extremity R/O DVT Reviewed. sd1 14:42 Misc Sealer Operator Order complete. jml1 14:44 BED REQUEST+ADM ordered. EDMS 14:47 DIGOXIN LEVEL Ordered. EDMS 14:52 NS 0.9% 1000 ml IV at 150 mL/hr continuous ordered. sd1 15:07 Chest, 2 View (pa\E\lat) Reviewed. sd1 15:07 CT Chest Without Contrast Reviewed. sd1 15:38 [facility] Payment Agreement was scanned into [employer] and attached to record. jp5 15:38 Financial registration complete. jp5 15:58 ELECTROCARDIOGRAM ADULT ordered. EDMS 16:04 CARDIAC MARKER PANEL Ordered. EDMS 16:44 NPO DIET ordered. EDMS 19:23 ECHOCARD,DOPPLER/COLOR FLOW ordered. EDMS 19:34 COMPLETE BLOOD COUNT Ordered. EDMS 19:34 RENAL PROFILE Ordered. EDMS 19:34 CARDIAC MARKER PANEL Ordered. EDMS 19:34 CARDIAC MARKER PANEL Ordered. EDMS 20:47 CARDIAC MARKER PANEL Ordered. EDMS 22:19 Admission / Observation Status ordered. EDMS 11/15 07:15 PUREED DIET ordered. EDMS 13:30 T-Sheet-- Draft Copy was scanned into [employer] and attached to record. gb 11/16 13:49 ECG/EKG was scanned into [employer] and attached to record. Administered Medications: 11/14 12:26 Drug: Acetaminophen 650 mg [acetaminophen 325 mg tablet (2 tabs)] Route: PO; mb9 15:04 Drug: NS 0.9% 1000 ml [sodium chloride 0.9 % injection solution] Route: IV; Rate: 150 mlb1 mL/hr; Site: right antecubital; Signatures: Dispatcher [employer] EDMS Radha Kaiser MD MD sd1 Stefani Hays, Reg Reg gb Jonel Hopper, RN RN mlb1 Andrew Sylvester jml1 Margarita AlvaradoRN RN aa3 Vera CouchRN RN Mariam Nazario, LAXMI [employer] MAINTENANCE SUPERVISOR rs6 Bear Stinson jp5 Jonel Miller RN mb9 The chart was reviewed and I authenticate all verbal orders and agree with the evaluation and treatment provided.Corrections: (The following items were deleted from the chart) 14:48 14:44 DIGOXIN LEVEL+LAB ordered. EDMS EDMS 16:36 16:23 TROPONIN ordered. EDMS EDMS 17:18 17:01 TROPONIN ordered. EDMS EDMS 20:08 17:29 CARDIAC MARKER PANEL ordered. EDMS EDMS 20:10 17:29 TROPONIN ordered. EDMS EDMS 20:47 19:34 CARDIAC MARKER PANEL ordered. EDMS EDMS Attachments: 15:38 [facility] Payment Agreement jp5 11/15 13:30 T-Sheet-- Draft Copy 11/16 13:49 ECG/EKG Chart Complete MTDD
--- NOTE | 2016-11-17 16:45 | EDDOCDS ---
Nurse's Notes [facility] Name: Criselda Cramer Age: 86 yrs Sex: Female : 1930 Arrival Date: 11/14/2016 Time: 11:07 Bed Admit Hold Private MD: Marly Benítez M Diagnosis: Other chest pain Presentation: 11/14 11:27 Presenting complaint: Patient states: pt c/o right and left flank pain. family reports ead pt has been having difficulty swallowing pills over the past week. daughter reports n/v. Adult Sepsis Screening: The patient does not have new or worsening altered mentation. Patient's respiratory rate is less than 22. Systolic blood pressure is greater than 100. Patient has a qSOFA score of 0- Negative Sepsis Screen. Suicide/Homicide risk assessment- the patient denies having any suicidal and/or homicidal ideations and does not present with any other emotional, behavioral or mental health complaints. Status: Patient is not a legal services professional or dependent. Transition of care: patient was not received from another setting of care. 11:27 Acuity: MILENA Level 3 ead 11:27 Method Of Arrival: Wheelchair ead Triage Assessment: 11:33 General: Appears in no apparent distress, Behavior is appropriate for age, cooperative. ead Pain: Location: anterior aspect of right lateral abdomen and anterior aspect of left lateral abdomen. Neurological: Level of Consciousness is awake, alert, obeys commands, Oriented to person, place, time. EENT: Parent/caregiver reports the patient having daughter reports pt has been having difficulty swallowing pills. Respiratory: Airway is patent Respiratory effort is even, unlabored. GI: Reports nausea, vomiting, right and left flank pain. Derm: Skin is pink, warm & dry. Historical: - Allergies: Aspirin; Ibuprofen; Morphine; - Home Meds: 1. furosemide 20 mg oral tab 2 times per day 2. Pradaxa 75 mg oral cap 2 times per day 3. omeprazole 20 mg Oral cpDR once daily 4. digoxin 125 mcg Oral tab once daily 5. metoprolol tartrate 100 mg Oral tab 2 times per day 6. Iron CR 65 mg Oral daily 7. simvastatin 40 mg Oral tab once daily - PMHx: Hypertension; CAD; Atrial Fib; Hypercholesterolemia; - PSHx: Appendectomy; Hysterectomy; Carotid surgery; D & C; Cholecystectomy; - Social history: Smoking status: Patient states was never smoker of tobacco. No barriers to communication noted, The patient speaks fluent Tunisian, Speaks appropriately for age. - Family history: Not pertinent. - : The pt / caregiver states he / she is on anticoagulants: Pradaxa (Dabigatran) Home medication list is obtained from the patient. - Exposure Risk Screening:: None identified. Screenin:18 Screening information is obtained from the patient. Fall risk: At risk due to age, The mlb1 following interventions are performed due to a positive Fall Risk Screen: Fall Risk is added to Special Handling on the patient Summary Screen. A Fall Risk Bracelet was applied to the patient. Side Rails are placed in the up position. A Call Peraza is given with instruction to call for help when getting out of bed. Fall Alert bracelet is placed on the patient. 17:34 Assistance ADL's: Requires assistance with housework, assistance is provided by family mlb1 members, medication administration, assistance is provided by family members. Nutritional screening: No deficits noted. home support is adequate. 22:38 Abuse/DV Screen: The patient / caregiver reports he/she is: not in a situation that cf2 causes fear, pain or injury. 22:38 Advance Directives: Further advance directive information is declined. cf2 Assessment: 12:02 General: Appears in no apparent distress, Behavior is appropriate for age, cooperative. mb9 Pain: Location: anterior aspect of left lateral abdomen and anterior aspect of right lateral abdomen Pain currently is 7 out of 10 on a pain scale. Neurological: Level of Consciousness is awake, alert, Oriented to person, place, time, Weakness Speech is normal, Facial symmetry appears normal. EENT: Reports difficulty swallowing since 4 days ago. Cardiovascular: Heart tones S1 S2 present Rhythm is sinus rhythm with PACs. Cardiovascular: pt's right arm appears swollen compared to left. pts left leg appears swollen compared to right. . Respiratory: Airway is patent Respiratory effort is even, unlabored, Breath sounds are clear bilaterally. Breath sounds are diminished in left posterior lower lobe and right posterior lower lobe. 12:17 General: Appears in no apparent distress, Behavior is appropriate for age, cooperative. mlb1 Pain: Denies pain. EENT: Reports pain when swallowing. Respiratory: Airway is patent Respiratory effort is even, unlabored, Breath sounds are diminished in right posterior lower lobe and left posterior lower lobe. Derm: No deficits noted. 13:13 General: Appears in no apparent distress, comfortable, Behavior is cooperative, Reports mlb1 fatigue for. Pain: Denies pain. Neurological: No deficits noted. Respiratory: No deficits noted. 14:12 General: Appears in no apparent distress, comfortable, Behavior is appropriate for age, mlb1 cooperative. Pain: Denies pain. Neurological: No deficits noted. Respiratory: No deficits noted. Respiratory: Airway is patent Respiratory effort is even, unlabored. 15:11 General: Appears in no apparent distress, comfortable, to be sleeping. Behavior is mlb1 quiet. 16:13 General: Appears in no apparent distress, comfortable, Behavior is appropriate for age, mlb1 cooperative, quiet. Pain: Denies pain. Neurological: No deficits noted. 17:11 General: Appears in no apparent distress, comfortable, to be sleeping. Behavior is mlb1 cooperative. 18:10 General: Appears in no apparent distress, comfortable, Behavior is appropriate for age, mlb1 cooperative. Pain: Denies pain. Neurological: Level of Consciousness is awake, alert, Oriented to person, place. Respiratory: No deficits noted. 19:03 General: Verbal report given by Tomas Malik RN. Assumed care of patient at this time.. kas2 19:18 General: Appears in no apparent distress, comfortable, Behavior is appropriate for age, kas2 cooperative. Pain: Denies pain. Neurological: Level of Consciousness is Oriented to person, place, time. Cardiovascular: Capillary refill < 3 seconds Heart tones S1 S2 present Rhythm is sinus rhythm No ectopy. Respiratory: Airway is patent Respiratory effort is even, unlabored, Breath sounds are clear bilaterally. Derm: Skin is intact, Skin is dry, Skin is pink, warm & dry. Skin temperature is warm. 20:10 General: Patient is sleeping at this time. Appears comfortable. No apparent distress kas2 noted. VSS. Airway patent and respiratory effort is even and unlabored. Call peraza within reach. Will continue to monitor.. 20:38 General: Verbal report given to Estella Becerril RN. . kas2 Vital Signs: 11:10 BP 120 / 57; Pulse 79; Resp 16; Temp 96.1; Pulse Ox 94% ; Weight 68.04 kg; Height 4 ft. cmb 11 in. (149.86 cm); Pain 10/10; 17:31 BP 116 / 51 (auto/); mlb1 17:31 Pulse 84 MON; Pulse Ox 95% ; mlb1 17:46 BP 78 / 43 (auto/); mlb1 17:46 Pulse 80 MON; Pulse Ox 100% ; mlb1 17:48 BP 81 / 53 (auto/); mlb1 17:48 Pulse 80 MON; Pulse Ox 100% ; mlb1 17:51 BP 88 / 67 (auto/); mlb1 17:52 BP 108 / 52 (auto/); mlb1 17:52 Pulse 76 MON; Pulse Ox 100% ; mlb1 17:53 Pulse 82 MON; Pulse Ox 100% ; mlb1 18:01 BP 99 / 49 (auto/); mlb1 18:01 Pulse 74 MON; Pulse Ox 100% ; mlb1 18:16 BP 101 / 68 (auto/); mlb1 18:16 Pulse 70 MON; Pulse Ox 100% ; mlb1 18:31 BP 149 / 59 (auto/); mlb1 18:46 BP 104 / 53 (auto/); kas2 18:46 Pulse 74 MON; Pulse Ox 100% ; kas2 18:46 Resp 18; Temp 97.9; kas2 18:47 Pulse Ox 100% on 2 lpm NC; mlb1 19:01 BP 94 / 44 (auto/); kas2 19:01 Pulse 58 MON; Pulse Ox 98% ; kas2 19:16 BP 114 / 58 (auto/); kas2 19:16 Pulse 62 MON; Pulse Ox 100% ; kas2 19:31 BP 98 / 49 (auto/); kas2 19:31 Pulse 64 MON; Pulse Ox 100% ; kas2 19:46 BP 100 / 51 (auto/); kas2 19:46 Pulse 54 MON; Pulse Ox 100% ; kas2 20:01 BP 110 / 77 (auto/); kas2 20:01 Pulse 62 MON; Pulse Ox 100% ; kas2 20:16 BP 104 / 51 (auto/); kas2 20:16 Pulse 60 MON; Pulse Ox 100% ; kas2 20:31 BP 124 / 61 (auto/); kas2 20:31 Pulse 66 MON; Pulse Ox 100% ; kas2 11:10 Body Mass Index 30.30 (68.04 kg, 149.86 cm) cmb Vitals: 11:10 Log In Time: November 14, 2016 at 11:07. cmb ED Course: 11:09 Patient visited by Caty Davis. cmb 11:09 Marly Benítez is Private Physician. cmb 11:09 Patient moved to Waiting cmb 11:13 Patient moved to Pre RCE cmb 11:29 Triage Initiated ead 11:50 Patient moved to 10 kr3 11:51 Radha Kaiser MD is Attending Physician. sd1 11:53 Patient visited by Radha Kaiser MD. sd1 12:10 Accompanied by Family Member, Patient has correct armband on for positive ct3 identification. Placed in gown. Bed in low position. Call light in reach. Side rails up X2. awake overnight monitor on. Pulse ox on. NIBP on. 12:10 EKG done. (by ED staff). Reviewed by Radha Kaiser MD. ct3 12:11 Patient visited by Carin Velásquez PCA. ct3 12:16 Basic Metabolic Profile Sent. mlb1 12:16 CBC with Diff Sent. mlb1 12:17 Cardiac Injury Profile Sent. mlb1 12:17 Prothrombin Time Profile\E\INR Sent. mlb1 12:17 Troponin Sent. mlb1 12:17 Inserted saline lock: 20 gauge in right antecubital area and blood collected. The mlb1 patient tolerated the procedure well. No procedures done that require assistance. 12:18 Patient visited by Jonel Hopper, TIM. mlb1 12:22 Patient moved to Ultrasound en 13:13 Patient visited by Jonel Hopper, RN. mlb1 13:13 Patient visited by Jonel Hopper, RN. mlb1 13:17 Patient moved to 10 en 13:34 CARDIAC MARKER PANEL Sent. mlb1 14:11 Patient visited by Andrew Sylvester. jml1 14:11 Assisted with bedpan. jml1 14:11 Chest, 2 View (pa\E\lat) Returned. EDMS 14:11 US Upper Extremity R/O DVT Returned. EDMS 14:11 US Lower Extremity R/O DVT Returned. EDMS 14:58 DIGOXIN LEVEL Sent. mlb1 15:01 Chest, 2 View (pa\E\lat) Returned. EDMS 15:01 CT Chest Without Contrast Returned. EDMS 15:06 Moe Bowie is Hospitalizing Provider. sd1 15:12 Patient visited by Jonel Hopper RN. mlb1 15:38 [facility] Payment Agreement was scanned into [email or web address] and attached to record. jp5 15:52 US Upper Extremity R/O DVT Returned. EDMS 15:52 US Lower Extremity R/O DVT Returned. EDMS 15:52 CT Chest Without Contrast Returned. EDMS 16:13 Patient visited by Jonel Hopper RN. mlb1 16:31 Patient moved to Admit Hold tmm1 17:12 Patient visited by Jonel Hopper RN. mlb1 17:14 The patient / caregiver is instructed regarding the plan of care and ED course. mlb1 18:47 Patient visited by Jonel Hopper RN. mlb1 19:03 Caridad Hickman RN is Primary Nurse. kas2 19:03 Patient visited by Caridad Hickman RN. kas2 19:04 Patient visited by Telly Alfonso PCA. kb5 19:21 Patient visited by Caridad Hickman RN. kas2 20:39 Patient visited by Caridad Hickman RN. kas2 20:53 Patient moved to 14 tmm1 21:06 Patient moved to Admit Hold sls1 21:16 EKG-ADULT Returned. EDMS 21:47 Primary Nurse role handed off by Caridad Hickman RN cf2 21:47 Estella Quiroz,TIM is Primary Nurse. cf2 21:47 Patient visited by Estella Quiroz RN. cf2 21:47 Patient visited by Estella Quiroz RN. cf2 22:12 Patient visited by Estella Quiroz RN. cf2 22:37 Patient visited by Estella Quiroz RN. cf2 11/15 13:30 T-Sheet-- Draft Copy was scanned into [email or web address] and attached to record. gb 14:28 Inserted peripheral IV: 20gauge IV in left hand. dwg 11/16 13:49 ECG/EKG was scanned into [email or web address] and attached to record. gb Administered Medications: 11/14 12:26 Drug: Acetaminophen 650 mg [acetaminophen 325 mg tablet (2 tabs)] Route: PO; mb9 15:04 Drug: NS 0.9% 1000 ml [sodium chloride 0.9 % injection solution] Route: IV; Rate: 150 mlb1 mL/hr; Site: right antecubital; Order Results: Lab Order: Basic Metabolic Profile; SPEC'M 11/14/16 12:14 Test: GLUCOSE, FASTING; Value: 95; Range: 83-110; Units: MG/DL; Status: F Test: BLOOD UREA NITROGEN; Value: 50; Range: 7-18; Abnormal: Above high normal; Units: MG/DL; Status: F Test: CREATININE FOR GFR; Value: 1.21; Range: 0.55-1.02; Abnormal: Above high normal; Units: MG/DL; Status: F Test: GLOMERULAR FILTRATION RATE; Value: 45.1; Range: >32; Status: F Test: SODIUM LEVEL; Value: 143; Range: 136-145; Units: MEQ/L; Status: F Test: POTASSIUM SERUM; Value: 3.9; Range: 3.5-5.1; Units: MEQ/L; Status: F Test: CHLORIDE LEVEL; Value: 95; Range: 98-107; Abnormal: Below low normal; Units: MEQ/L; Status: F Test: CARBON DIOXIDE LEVEL; Value: 36; Range: 21-32; Abnormal: Above high normal; Units: MEQ/L; Status: F Test: ANION GAP; Value: 12; Range: 8-16; Units: MEQ/L; Status: F Test: CALCIUM LEVEL; Value: 9.0; Range: 8.8-10.2; Units: MG/DL; Status: F Test Note: ; Units are mL/min/1.73 m2 Chronic Kidney Disease Staging per NKF: Stage I & II GFR >=60 Normal to Mildly Decreased Stage III GFR 30-59 Moderately Decreased Stage IV GFR 15-29 Severely Decreased Stage V GFR <15 Very Little GFR Left ESRD GFR <15 on AMBULETT[employer] DRIVER Test: DIGOXIN LEVEL; Range: 0.5-2.0; Units: NG/ML; Status: I Lab Order: CBC with Diff; SPEC'M 11/14/16 12:14 Test: WHITE BLOOD COUNT; Value: 5.2; Range: 4.0-10.0; Units: K/mm3; Status: F Test: RED BLOOD COUNT; Value: 3.64; Range: 4.00-5.40; Abnormal: Below low normal; Units: M/mm3; Status: F Test: HEMOGLOBIN; Value: 12.4; Range: 12.0-16.0; Units: g/dl; Status: F Test: HEMATOCRIT; Value: 38.0; Range: 36.0-47.0; Units: %; Status: F Test: MEAN CORPUSCULAR VOLUME; Value: 104.3; Range: 80.0-96.0; Abnormal: Above high normal; Units: fl; Status: F Test: MEAN CORPUSCULAR HEMOGLOBIN; Value: 34.0; Range: 27.0-33.0; Abnormal: Above high normal; Units: pg; Status: F Test: MEAN CORPUSCULAR HGB CONC; Value: 32.6; Range: 32.0-36.5; Units: g/dl; Status: F Test: RED CELL DISTRIBUTION WIDTH; Value: 15.3; Range: 11.5-14.5; Abnormal: Above high normal; Units: %; Status: F Test: PLATELET COUNT, AUTOMATED; Value: 279; Range: 150-450; Units: k/mm3; Status: F Test: NEUTROPHILS %; Value: 75.4; Range: 36.0-66.0; Abnormal: Above high normal; Units: %; Status: F Test: LYMPH %; Value: 14.1; Range: 24.0-44.0; Abnormal: Below low normal; Units: %; Status: F Test: MONO %; Value: 7.0; Range: 0.0-5.0; Abnormal: Above high normal; Units: %; Status: F Test: EOS %; Value: 0.2; Range: 0.0-3.0; Units: %; Status: F Test: BASO %; Value: 0.1; Range: 0.0-1.0; Units: %; Status: F Test: LARGE UNSTAINED CELL %; Value: 3.2; Range: 0.0-4.0; Units: %; Status: F Test: NEUTROPHILS #; Value: 4.0; Range: 1.8-7.7; Units: K/mm3; Status: F Test: LYMPH #; Value: 0.7; Range: 1.5-4.5; Abnormal: Below low normal; Units: K/mm3; Status: F Test: MONO #; Value: 0.4; Range: 0.0-0.8; Units: K/mm3; Status: F Test: EOS #; Value: 0.0; Range: 0.0-0.50; Units: K/mm3; Status: F Test: BASO #; Value: 0.0; Range: 0.0-0.2; Units: K/mm3; Status: F Test: LARGE UNSTAINED CELL #; Value: 0.2; Range: 0.0-0.4; Units: K/mm3; Status: F Lab Order: Cardiac Injury Profile; [facility] 11/14/16 12:14 Test: CPK CREATINE PHOSPHOKINASE; Value: 149; Range: 26-192; Units: U/L; Status: F Test: CK-MB VALUE MASS; Value: 5.2; Range: 0.0-3.6; Abnormal: Above high normal; Units: NG/ML; Status: F Test: MB/CK RELATIVE INDEX; Value: 3.48; Range: < OR =4; Status: F Test Note: ; DIAGNOSIS CRITERIA MMB ng/ml Relative Index (RI) NON-AMI < or = 5 N/A HAYES ZONE > 5 < or = 4 AMI > 5 > 4 Lab Order: Prothrombin Time Profile\E\INR; [facility] 11/14/16 12:14 Test: PROTHROMBIN TIME; Value: 17.0; Range: 12.3-14.5; Abnormal: Above high normal; Units: SECONDS; Status: F Test: INR; Value: 1.37; Status: F Test Note: ; THERAPUTIC HUMAN INR VALUES INDICATIONS NORMAL RANGES PROPHYLAXIS/TREATMENT OF: VENOUS THROMBOSIS 2.0-3.0 PULMONARY EMBOLISM 2.0-3.0 PREVENTION OF SYSTEMIC EMBOLISM FROM: TISSUE HEART VALVES 2.0-3.0 ACUTE MYOCARDIAL INFARCTION 2.0-3.0 VALVULAR HEART DISEASE 2.0-3.0 ATRIAL FIBRILLATION 2.0-3.0 MECHANICAL VALVES(HIGH RISK) 2.5-3.5 RECURRENT MYOCARDIAL INFARCTION 2.5-3.5 Lab Order: Troponin; [facility] 11/14/16 12:14 Test: TROPONIN I; Value: 0.17; Range: < 0.10; Abnormal: Above high normal; Units: NG/ML; Status: F Test Note: ; Troponin I Reference Interval for yuback LOCI: 99th Percentile= 0.00-0.045 ng/ml Risk Stratification: <= 0.10 ng/ml Decreased Risk for Adverse Clinical Events. 0.10-1.50 ng/ml Increased Risk for Adverse Clinical Events. Evaluation of additional criterion and/or repeat testing in 2-6 hours is suggested to rule out myocardial damage. >= 1.50 ng/ml Indicative of Myocardial Injury. Lab Order: CARDIAC MARKER PANEL; [facility] 11/14/16 13:33 Test: CPK CREATINE PHOSPHOKINASE; Value: 136; Range: 26-192; Units: U/L; Status: F Test: CK-MB VALUE MASS; Value: 5.0; Range: 0.0-3.6; Abnormal: Above high normal; Units: NG/ML; Status: F Test: MB/CK RELATIVE INDEX; Value: 3.67; Range: < OR =4; Status: F Test: TROPONIN I; Value: 0.17; Range: < 0.10; Abnormal: Above high normal; Units: NG/ML; Status: F Test Note: ; DIAGNOSIS CRITERIA MMB ng/ml Relative Index (RI) NON-AMI < or = 5 N/A HAYES ZONE > 5 < or = 4 AMI > 5 > 4 Lab Order: DIGOXIN LEVEL; [facility] 11/14/16 12:14 Test: DIGOXIN LEVEL; Value: 1.7; Range: 0.5-2.0; Units: NG/ML; Status: F Lab Order: CARDIAC MARKER PANEL; [facility] 11/14/16 17:26 Test: CPK CREATINE PHOSPHOKINASE; Value: 145; Range: 26-192; Units: U/L; Status: F Test: CK-MB VALUE MASS; Value: 5.5; Range: 0.0-3.6; Abnormal: Above high normal; Units: NG/ML; Status: F Test: MB/CK RELATIVE INDEX; Value: 3.79; Range: < OR =4; Status: F Test: TROPONIN I; Value: 0.19; Range: < 0.10; Abnormal: Above high normal; Units: NG/ML; Status: F Test Note: ; DIAGNOSIS CRITERIA MMB ng/ml Relative Index (RI) NON-AMI < or = 5 N/A HAYES ZONE > 5 < or = 4 AMI > 5 > 4 Lab Order: COMPLETE BLOOD COUNT; [facility] 11/15/16 07:27 Test: WHITE BLOOD COUNT; Value: 6.2; Range: 4.0-10.0; Units: K/mm3; Status: F Test: RED BLOOD COUNT; Value: 3.51; Range: 4.00-5.40; Abnormal: Below low normal; Units: M/mm3; Status: F Test: HEMOGLOBIN; Value: 11.6; Range: 12.0-16.0; Abnormal: Below low normal; Units: g/dl; Status: F Test: HEMATOCRIT; Value: 38.5; Range: 36.0-47.0; Units: %; Status: F Test: MEAN CORPUSCULAR VOLUME; Value: 103.5; Range: 80.0-96.0; Abnormal: Above high normal; Units: fl; Status: F Test: MEAN CORPUSCULAR HEMOGLOBIN; Value: 32.9; Range: 27.0-33.0; Units: pg; Status: F Test: MEAN CORPUSCULAR HGB CONC; Value: 30.0; Range: 32.0-36.5; Abnormal: Below low normal; Units: g/dl; Status: F Test: RED CELL DISTRIBUTION WIDTH; Value: 16.9; Range: 11.5-14.5; Abnormal: Above high normal; Units: %; Status: F Test: PLATELET COUNT, AUTOMATED; Value: 207; Range: 150-450; Units: k/mm3; Status: F Lab Order: RENAL PROFILE; SPEC'M 11/15/16 07:27 Test: GLUCOSE, FASTING; Value: 72; Range: 83-110; Abnormal: Below low normal; Units: MG/DL; Status: F Test: BLOOD UREA NITROGEN; Value: 40; Range: 7-18; Abnormal: Above high normal; Units: MG/DL; Status: F Test: CREATININE FOR GFR; Value: 0.81; Range: 0.55-1.02; Units: MG/DL; Status: F Test: SODIUM LEVEL; Value: 144; Range: 136-145; Units: MEQ/L; Status: F Test: POTASSIUM SERUM; Value: 3.7; Range: 3.5-5.1; Units: MEQ/L; Status: F Test: CHLORIDE LEVEL; Value: 100; Range: 98-107; Units: MEQ/L; Status: F Test: CARBON DIOXIDE LEVEL; Value: 33; Range: 21-32; Abnormal: Above high normal; Units: MEQ/L; Status: F Test: ANION GAP; Value: 11; Range: 8-16; Units: MEQ/L; Status: F Test: CALCIUM LEVEL; Value: 8.2; Range: 8.8-10.2; Abnormal: Below low normal; Units: MG/DL; Status: F Test: PHOSPHORUS LEVEL; Value: 3.0; Range: 2.5-4.9; Units: MG/DL; Status: F Test: ALBUMIN; Value: 2.3; Range: 3.2-5.2; Abnormal: Below low normal; Units: GM/DL; Status: F Test Note: ; --- 11/15/16 1041 --- CO2 previously reported as: 33 H MEQ/L Lab Order: CARDIAC MARKER PANEL; SPEC'M 11/15/16 00:36 Test: CPK CREATINE PHOSPHOKINASE; Value: 335; Range: 26-192; Abnormal: High; Units: U/L; Status: F Test: CK-MB VALUE MASS; Value: 10.6; Range: 0.0-3.6; Abnormal: Above high normal; Units: NG/ML; Status: F Test: MB/CK RELATIVE INDEX; Value: 3.16; Range: < OR =4; Status: F Test: TROPONIN I; Value: 0.22; Range: < 0.10; Abnormal: Above high normal; Units: NG/ML; Status: F Test Note: ; DIAGNOSIS CRITERIA MMB ng/ml Relative Index (RI) NON-AMI < or = 5 N/A HAYES ZONE > 5 < or = 4 AMI > 5 > 4 Lab Order: CARDIAC MARKER PANEL; SPEC'M 11/15/16 11:58 Test: CPK CREATINE PHOSPHOKINASE; Value: 474; Range: 26-192; Abnormal: Above high normal; Units: U/L; Status: F Test: CK-MB VALUE MASS; Value: 10.7; Range: 0.0-3.6; Abnormal: Above high normal; Units: NG/ML; Status: F Test: MB/CK RELATIVE INDEX; Value: 2.25; Range: < OR =4; Status: F Test: TROPONIN I; Value: 0.18; Range: < 0.10; Abnormal: Above high normal; Units: NG/ML; Status: F Test Note: ; DIAGNOSIS CRITERIA MMB ng/ml Relative Index (RI) NON-AMI < or = 5 N/A HAYES ZONE > 5 < or = 4 AMI > 5 > 4 Lab Order: CARDIAC MARKER PANEL; SPEC'M 11/15/16 07:27 Test: CPK CREATINE PHOSPHOKINASE; Value: 424; Range: 26-192; Abnormal: Above high normal; Units: U/L; Status: F Test: CK-MB VALUE MASS; Value: 12.4; Range: 0.0-3.6; Abnormal: Above high normal; Units: NG/ML; Status: F Test: MB/CK RELATIVE INDEX; Value: 2.92; Range: < OR =4; Status: F Test: TROPONIN I; Value: 0.18; Range: < 0.10; Abnormal: Above high normal; Units: NG/ML; Status: F Test Note: ; DIAGNOSIS CRITERIA MMB ng/ml Relative Index (RI) NON-AMI < or = 5 N/A HAYES ZONE > 5 < or = 4 AMI > 5 > 4 Radiology Order: Chest, 2 View (pa\E\lat) Test: Chest, 2 View (pa\E\lat) REASON FOR EXAMINATION: Chest Pain; CHEST, TWO VIEWS:; ; HISTORY: Chest pain.; ; COMPARISON: 08/03/2015; ; A diffuse increased in interstitial markings is present in the lungs consistent; with chronic interstitial fibrosis. The cardiac silhouette is enlarged. The; pulmonary vasculature is normal in appearance. There are old compression; fractures of several mid and lower thoracic vertebral bodies. Degenerative change; is present in the thoracic spine.; ; IMPRESSION:; ; 1. Chronic interstitial fibrosis.; ; 2. 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; : 1930 Requested By: Radha Kaiser; Order Number: [id number] Reading MD: Radha Kaiser; Measurements; Intervals [place]; Rate: 87 P:; CT: 0 QRS: 39; QRSD: 83 T: -85; QT: 331; QTc: 399; Interpretive Statements; ATRIAL FIBRILLATION; ST DEVIATION AND MODERATE T-WAVE ABNORMALITY, CONSIDER ANTERIOR ISCHEMIA; ST DEVIATION AND MODERATE T-WAVE ABNORMALITY, CONSIDER INFERIOR ISCHEMIA; ST CHANGES NEW 01/22/13 CLINICAL CORRELATION; Electronically Signed On 11-14-2016 20:24:34 EST by Radha Kaiser; Radiology Order: US Lower Extremity R/O DVT Test: US Lower Extremity R/O DVT REASON FOR EXAMINATION: swelling; DUPLEX EXTREMITY VENOUS ULTRASOUND: Left lower extremity.; ; HISTORY: Left leg swelling.; ; FINDINGS: The deep veins are anechoic and fully compressible from the groin to; the popliteal fossa in the left lower extremity. Color flow imaging is; homogeneous. Spectral Doppler interrogation demonstrates intact respiratory; variation in flow and normal manual augmentation of flow. There is no evidence; of deep vein thrombosis. Some atherosclerotic shadowing plaquing was seen from; arterial vessels. Soft tissue edema is noted in the popliteal soft tissues.; ; IMPRESSION: Negative left lower extremity duplex venous ultrasound. No evidence; of deep vein thrombosis.; ; ; Signed by; Joe Chatman MD 11/14/2016 03:01 P; Radiology Order: US Upper Extremity R/O DVT Test: US Upper Extremity R/O DVT REASON FOR EXAMINATION: swelling; RIGHT UPPER EXTREMITY DUPLEX VENOUS ULTRASOUND:; ; HISTORY: Right arm swelling.; ; FINDINGS: The right internal jugular, right subclavian, right axillary, right; brachial, and right basilic veins are anechoic and compressible in the right; upper extremity. The cephalic vein could not be visualized. Cephalic vein; thrombus cannot be excluded. No thrombosed venous structures directly; visualized.; ; IMPRESSION: Cephalic vein not visualized in the right arm. Cannot exclude; thrombosis of the right cephalic vein but no venous thrombosis was directly; visualized. Other veins normal.; ; ; Signed by; Joe Chatman MD 11/14/2016 03:00 P; Radiology Order: CT Chest Without Contrast Test: CT Chest Without Contrast REASON FOR EXAMINATION: Chest Pain; CT STUDY OF THE CHEST WITHOUT CONTRAST:; ; HISTORY: Chest pain.; ; Comparison chest CT study is from December 27, 2015.; ; CT FINDINGS: There is a diffuse interstitial fibrosis pattern in the lung nur; bilaterally. This is probably a little less prominent than on the CT study from; 12/27/2015. The thoracic aorta is normal in course and caliber and unchanged in; appearance. Some vascular calcification is seen including coronary artery; vascular calcification. No hilar or mediastinal mass or adenopathy is observed.; No pleural effusion is seen. No adrenal mass is seen. There is vascular; calcification in a multifocal fashion along the course of the splenic artery. I; cannot exclude splenic arterial aneurysms as there are several ring calcified; lesions along the course of the splenic artery. The largest of these measures; 1.9 cm in greatest diameter. These are unchanged. There are clips in the; gallbladder fossa on spiral binder view. Bone window settings show degenerative disc; changes in the thoracic spine at multiple levels. 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 No; evidence of focal infiltrate or pleural effusion. Cardiomegaly with vascular; calcification. Stable vascular calcifications in the splenic artery. The; patient status post cholecystectomy.; ; ; Signed by; Joe Chatman MD 11/14/2016 03:01 P; Outcome: 15:06 Decision to Hospitalize by Provider. sd1 22:37 Discharge Assessment: Patient awake, alert and oriented x 3. No cognitive and/or cf2 functional deficits noted. Patient verbalized understanding of disposition instructions. Patient awake and alert. patient administered narcotics - no. The following High Risk Discharge criteria are identified: Yes, Admitted ER admission hold nurse. Condition: good. No special radiology studies were completed. Property :Personal belongings accompany Pt. 11/15 15:44 Patient left the ED. rs6 Signatures: Dispatcher [employer] EDMS Radha Kaiser MD MD sd1 Jose Hager, RN RN Stefani Bravo, Jonel Kenny, RN RN mlb1 Pina Soliman,TIM RN kr3 Telly Alfonso, COMPLIANCE MGR COMPLIANCE MGR kb5 Carin Velásquez, COMPLIANCE MGR COMPLIANCE MGR ct3 Faby Fernandez RN RN sls1 Andrew Sylvesterl1 [facility], Aminta, COMPLIANCE MGR COMPLIANCE MGR tmm1 Vera Couch,RN RN eliasd Jonel Miller,RN RN mb9 Mariam Mathur, COMPLIANCE MGR COMPLIANCE MGR rs6 Vera Ayon Jennalee jp5 Caridad Hickman,RN RN kas2 Estella Quiroz,RN RN cf2 Corrections: (The following items were deleted from the chart) 11/14 14:48 14:45 DIGOXIN LEVEL+LAB sent. mlb1 EDMS 18:47 18:31 Pulse 68bpm; Monitor; Pulse Ox 76%; mlb1 mlb1 Chart Complete MTDD
--- NOTE | 2016-11-17 16:45 | EDDOCDS ---
Physician Documentation [facility] Name: Criselda Rojas Age: 86 yrs Sex: Female : 1930 Arrival Date: 11/14/2016 Time: 11:07 Bed Admit Hold Private MD: Marly Benítez M Disposition: 11/14/16 15:06 Hospitalization ordered by Moe Bowie for Inpatient Admission. Preliminary diagnosis is Other chest pain. - Bed requested for PCU. - Status is Inpatient Admission. rs6 - Condition is Stable. - Problem is new. - Symptoms are unchanged. Historical: - Allergies: Aspirin; Ibuprofen; Morphine; - Home Meds: 1. furosemide 20 mg oral tab 2 times per day 2. Pradaxa 75 mg oral cap 2 times per day 3. omeprazole 20 mg Oral cpDR once daily 4. digoxin 125 mcg Oral tab once daily 5. metoprolol tartrate 100 mg Oral tab 2 times per day 6. Iron CR 65 mg Oral daily 7. simvastatin 40 mg Oral tab once daily - PMHx: Hypertension; CAD; Atrial Fib; Hypercholesterolemia; - PSHx: Appendectomy; Hysterectomy; Carotid surgery; D & C; Cholecystectomy; - Social history: Smoking status: Patient states was never smoker of tobacco. No barriers to communication noted, The patient speaks fluent Maldivian, Speaks appropriately for age. - Family history: Not pertinent. - : The pt / caregiver states he / she is on anticoagulants: Pradaxa (Dabigatran) Home medication list is obtained from the patient. - Exposure Risk Screening:: None identified. Vital Signs: 11/14 11:10 BP 120 / 57; Pulse 79; Resp 16; Temp 96.1; Pulse Ox 94% ; Weight 68.04 kg / 150 lbs; cmb Height 4 ft. 11 in. (149.86 cm); Pain 10/10; 17:31 BP 116 / 51 (auto/); mlb1 17:31 Pulse 84 MON; Pulse Ox 95% ; mlb1 17:46 BP 78 / 43 (auto/); mlb1 17:46 Pulse 80 MON; Pulse Ox 100% ; mlb1 17:48 BP 81 / 53 (auto/); mlb1 17:48 Pulse 80 MON; Pulse Ox 100% ; mlb1 17:51 BP 88 / 67 (auto/); mlb1 17:52 BP 108 / 52 (auto/); mlb1 17:52 Pulse 76 MON; Pulse Ox 100% ; mlb1 17:53 Pulse 82 MON; Pulse Ox 100% ; mlb1 18:01 BP 99 / 49 (auto/); mlb1 18:01 Pulse 74 MON; Pulse Ox 100% ; mlb1 18:16 BP 101 / 68 (auto/); mlb1 18:16 Pulse 70 MON; Pulse Ox 100% ; mlb1 18:31 BP 149 / 59 (auto/); mlb1 18:46 BP 104 / 53 (auto/); kas2 18:46 Pulse 74 MON; Pulse Ox 100% ; kas2 18:46 Resp 18; Temp 97.9; kas2 18:47 Pulse Ox 100% on 2 lpm NC; mlb1 19:01 BP 94 / 44 (auto/); kas2 19:01 Pulse 58 MON; Pulse Ox 98% ; kas2 19:16 BP 114 / 58 (auto/); kas2 19:16 Pulse 62 MON; Pulse Ox 100% ; kas2 19:31 BP 98 / 49 (auto/); kas2 19:31 Pulse 64 MON; Pulse Ox 100% ; kas2 19:46 BP 100 / 51 (auto/); kas2 19:46 Pulse 54 MON; Pulse Ox 100% ; kas2 20:01 BP 110 / 77 (auto/); kas2 20:01 Pulse 62 MON; Pulse Ox 100% ; kas2 20:16 BP 104 / 51 (auto/); kas2 20:16 Pulse 60 MON; Pulse Ox 100% ; kas2 20:31 BP 124 / 61 (auto/); kas2 20:31 Pulse 66 MON; Pulse Ox 100% ; kas2 11:10 Body Mass Index 30.30 (68.04 kg, 149.86 cm) cmb MDM: 12:02 Cake Icer And Packer/Pulse Ox/q 30 min VS ordered. sd1 12:02 IV Saline Lock ordered. sd1 12:02 Rhythm Strip to chart ordered. sd1 12:02 Undress patient appropriately for examination ordered. sd1 12:02 Acetaminophen Tablet 650 mg PO once ordered. sd1 12:02 Chest, 2 View (pa\E\lat) Ordered. EDMS 12:02 Basic Metabolic Profile Ordered. EDMS 12:02 CBC with Diff Ordered. EDMS 12:02 Cardiac Injury Profile Ordered. EDMS 12:02 Prothrombin Time Profile\E\INR Ordered. EDMS 12:03 Troponin Ordered. EDMS 12:03 ECG WITH READING ER PHYS+CARDIAG ordered. EDMS 12:07 US Lower Extremity R/O DVT Ordered. EDMS 12:07 US Upper Extremity R/O DVT Ordered. EDMS 12:51 Basic Metabolic Profile Reviewed. sd1 12:51 CBC with Diff Reviewed. sd1 12:51 Cardiac Injury Profile Reviewed. sd1 12:51 Prothrombin Time Profile\E\INR Reviewed. sd1 12:51 Troponin Reviewed. sd1 13:23 Redraw CIP &Troponin (put time in details section) ordered. sd1 13:25 CT Chest Without Contrast Ordered. EDMS 13:30 Redraw CIP &Troponin (put time in details section) complete. jml1 13:32 CARDIAC MARKER PANEL Ordered. EDMS 14:12 Misc Fertilizing Machine Operator Order ordered. sd1 14:19 CARDIAC MARKER PANEL Reviewed. sd1 14:19 Chest, 2 View (pa\E\lat) Reviewed. sd1 14:19 US Lower Extremity R/O DVT Reviewed. sd1 14:19 US Upper Extremity R/O DVT Reviewed. sd1 14:42 Misc Fertilizing Machine Operator Order complete. jml1 14:44 BED REQUEST+ADM ordered. EDMS 14:47 DIGOXIN LEVEL Ordered. EDMS 14:52 NS 0.9% 1000 ml IV at 150 mL/hr continuous ordered. sd1 15:07 Chest, 2 View (pa\E\lat) Reviewed. sd1 15:07 CT Chest Without Contrast Reviewed. sd1 15:38 [facility] [place] was scanned into [employer] and attached to record. jp5 15:38 Financial registration complete. jp5 15:58 ELECTROCARDIOGRAM ADULT ordered. EDMS 16:04 CARDIAC MARKER PANEL Ordered. EDMS 16:44 NPO DIET ordered. EDMS 19:23 ECHOCARD,DOPPLER/COLOR FLOW ordered. EDMS 19:34 COMPLETE BLOOD COUNT Ordered. EDMS 19:34 RENAL PROFILE Ordered. EDMS 19:34 CARDIAC MARKER PANEL Ordered. EDMS 19:34 CARDIAC MARKER PANEL Ordered. EDMS 20:47 CARDIAC MARKER PANEL Ordered. EDMS 22:19 Admission / Observation Status ordered. EDMS 11/15 07:15 PUREED DIET ordered. EDMS 13:30 T-Sheet-- Draft Copy was scanned into [employer] and attached to record. gb 11/16 13:49 ECG/EKG was scanned into [employer] and attached to record. Administered Medications: 11/14 12:26 Drug: Acetaminophen 650 mg [acetaminophen 325 mg tablet (2 tabs)] Route: PO; mb9 15:04 Drug: NS 0.9% 1000 ml [sodium chloride 0.9 % injection solution] Route: IV; Rate: 150 mlb1 mL/hr; Site: right antecubital; Signatures: Dispatcher [employer] EDMS Radha Kaiser MD MD sd1 Stefani Hays, Reg Reg gb Jonel Hopper, RN RN mlb1 Andrew Sylvester jml1 Margarita AlvaradoRN RN aa3 Vera CouchRN RN Mariam Nazario, [employer] rs6 Bear Stinson jp5 Jonel Miller RN mb9 The chart was reviewed and I authenticate all verbal orders and agree with the evaluation and treatment provided.Corrections: (The following items were deleted from the chart) 14:48 14:44 DIGOXIN LEVEL+LAB ordered. EDMS EDMS 16:36 16:23 TROPONIN ordered. EDMS EDMS 17:18 17:01 TROPONIN ordered. EDMS EDMS 20:08 17:29 CARDIAC MARKER PANEL ordered. EDMS EDMS 20:10 17:29 TROPONIN ordered. EDMS EDMS 20:47 19:34 CARDIAC MARKER PANEL ordered. EDMS EDMS Attachments: 15:38 [facility] Payment Agreement jp5 11/15 13:30 T-Sheet-- Draft Copy 11/16 13:49 ECG/EKG Chart Complete MTDD
[2016-11-17] MEDS: MIRTAZAPINE 15 MG TAB PO SCH (21:46)
[2016-11-17 22:00] VITALS: BP 126/64
[2016-11-18] MEDS: SLF 3 ML SYR IV SCH ×3 (05:26→21:11)
[2016-11-18 05:55] LABS: MEAN CORPUSCULAR HEMOGLOBIN 33.6 pg (27.0-33.0); MEAN CORPUSCULAR HGB CONC 31.2 g/dl (32.0-36.5); MEAN CORPUSCULAR VOLUME 107.6 fl (80.0-96.0); RED CELL DISTRIBUTION WIDTH 15.1 % (11.5-14.5); WHITE BLOOD COUNT 4.8 K/mm3 (4.0-10.0)
[2016-11-18 06:00] VITALS: BP 136/66
[2016-11-18 06:05] LABS: ALBUMIN 1.9 GM/DL (3.2-5.2); ANION GAP 7 MEQ/L (8-16); BLOOD UREA NITROGEN 12 MG/DL (7-18); CALCIUM LEVEL 8.1 MG/DL (8.8-10.2); CARBON DIOXIDE LEVEL 40 MEQ/L (21-32); CHLORIDE LEVEL 100 MEQ/L (98-107); CREATININE FOR GFR 0.53 MG/DL (0.55-1.02); GLOMERULAR FILTRATION RATE > 60.0 (>32); GLUCOSE, FASTING 78 MG/DL (83-110); PHOSPHORUS LEVEL 2.1 MG/DL (2.5-4.9); POTASSIUM SERUM 3.4 MEQ/L (3.5-5.1); SODIUM LEVEL 147 MEQ/L (136-145)
[2016-11-18] MEDS ORDERED: DIGOXIN 0.125 MG TAB PO SCH (09:00)
[2016-11-18] MEDS: OMEPRAZOLE 20 MG CAP PO SCH (09:46)
[2016-11-18] MEDS: METOPROLOL TARTRATE 100 MG TAB PO SCH ×2 (09:46→21:11)
[2016-11-18] MEDS: DABIGATRAN ETEXILATE 75 MG CAP (PRADAXA) PO SCH ×2 (09:47→21:10)
[2016-11-18] MEDS: CYANOCOBALAMIN 500 MCG TAB PO SCH (09:47)
[2016-11-18] MEDS: ATORVASTATIN 20 MG TAB PO SCH (09:47)
--- NOTE | 2016-11-18 10:54 | IPNPDOC ---
Assessment/Plan Date Seen The patient was seen on 11/18/16. Family Medicine Attending Note: I saw and examined Ms. Rojas, discussed with BRIDGETTE Hernández. Agree with their note as documented. She reportedly has a seated wheeled walker at home; apparently she just doesn't like to use it. I asked her family to bring this and so she can work with nursing staff tomorrow. I believe if she can demonstrate how well she can use this to physical therapy on Sunday she will be dischargeable at that time. 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 Elias opinion-he favors repolarization abnormalities are 2 digoxin (although changes were present at level 1.7, moreso resolved at 1.8). Would favor outpatient NST at least 11/16/16 TTE-Curt Normal left ventricle (LV) size and systolic function. 3. Moderate aortic stenosis. 4. No significant mitral valve disease. 5. High central venous pressure. 6. At least moderate and probably moderately severe pulmonary hypertension. 7. Severe biatrial enlargement. Clearly pain has not been cardiac in nature describing as lateral chest "ache" replicated by pressure. Nevertheless, no explanation for T-I to 0.22 and CPK 474 c index 2.3. More concerning are marked new repolarization abnormalities with new anterior/inferior T wave inversion and new V2-V4 1-1.[address] depression by 11/14/2016 12:06 EKG c/w 01/23/2012. Therefore, changed to HI statin , added aspirin and pushed BB and Dr. Fowler consulted t/c catherization vs outpatient NST. TTE, serial enzymes ordered. 11/18 - Dr Elias saw pt yesterday, no additional recommendations at this time. (2) Diastolic CHF Status: Acute Problem Text: favor at best "dry" weight we can obtain without OH risk hector given moderate (3) Bradycardia Status: Acute Problem Text: 11/18 - HR stable today. 11/17 decreased dig 0.125 5D qW and metoprolol back to 100 BID-HR 60-70s 11/16 HR 90-100 on 50 BID; therefore, increased to 75 BID, hold HR <50 (4) Elevated troponin Status: Acute Problem Text: as per chest pain (5) Atrial fibrillation Status: Chronic Problem Text: rate controlled on BB and digoxin anticoagulated c dabigatrin (6) Do not resuscitate Status: Chronic Problem Text: Discussed at length. MOLST form filled out and placed in patient 's chart. DNR ordered. (7) Anemia, macrocytic Status: Chronic Response to Treatment: Worse Problem Text: caution on dabigatran 11/17 10.1, 107, B12 >2000, 10%, 86 (favoring ACD) 11/16 10.6 baseline hgb 11-12 Plan / VTE VTE Prophylaxis Ordered?: Yes Plan Anticipated Discharge: Home (not currently safe 11/18 - will d/c home when safe , not SNF appropriate as anticipate home in a cpl days) Subjective Review of Systems CC/HPI Pt in bedside chair. She is feeling a bit better today. Pain in her chest is better today than it has been. General: Denies: Fatigue Constitutional: Denies: Chills, Fever Pulmonary: Denies: Cough, Dyspnea Cardiovascular: Reports: Chest Pain, Denies: Palpitations Gastrointestinal: Denies: Diarrhea, Nausea, Vomiting Psych: Reports: Mood Normal Objective Physical Examination General Exam: Positive: Alert, Cooperative ENT Exam: Positive: Mucous membr. moist/pink Neck Exam: Positive: Supple Chest Exam: Positive: Clear to auscultation, Normal air movement, Other ( tender to palpate along lower lateral rib cage, more tender R side than L, no ecchymosis or erythema on skin) Heart Exam: Positive: Irregular Rhythm, Rate Normal Telemetry: Positive: Bradycardia Abdomen Exam: Positive: Normal bowel sounds Extremity Exam: Positive: Edema (Trace BLE) Vital Signs/I&O Vital Signs Date Time Temp Pulse Resp B/P Pulse Ox O2 Delivery O2 Flow Rate FiO2 11/18/16 09:46 70 11/18/16 09:46 122/72 11/18/16 06:00 96.8 19 99 Nasal Cannula 0.5 I&O- Last 24 Hours up to 6 AM 11/18/16 06:00 Intake Total 1080 ml Output Total 650 ml Balance 430 ml Laboratory Data Labs 24H Laboratory Tests 2 11/18/16 05:21: Albumin 1.9L, Blood Urea Nitrogen 12, Creatinine 0.53L, Sodium Level 147H, Potassium Level 3.4L, Chloride Level 100, Carbon Dioxide Level 40H, Anion Gap 7L , Calcium Level 8.1L, Glomerular Filtration Rate > 60.0, Phosphorus Level 2.1L CBC/BMP Laboratory Tests 11/18/16 05:21 Anion Gap 7 L, Red Blood Count 3.05 L, Mean Corpuscular Volume 107.6 H, Mean Corpuscular Hemoglobin 33.6 H, Mean Corpuscular Hemoglobin Concent 31.2 L, Red Cell Distribution Width 15.1 H Microbiology Microbiology 11/16/16 Stool Occult Blood (JOSSUE) - Final, Complete YOHANNES QUINTANA PA-C Nov 18, 2016 10:54 Long Johnson MD Nov 18, 2016 22:52
[2016-11-18 14:00] VITALS: BP 126/59
[2016-11-18] MEDS: MIRTAZAPINE 15 MG TAB PO SCH (21:10)
[2016-11-18 21:11] VITALS: BP 113/58
[2016-11-18 22:00] VITALS: BP 113/58
[2016-11-19] MEDS: SLF 3 ML SYR IV SCH (05:10)
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
[2016-11-20 11:51] LABS: ALBUMIN 2.42 GM/DL (3.29-5.55); ALBUMIN % 47.4 % (55.8-66.1)
[2016-11-20 11:52] LABS: GAMMA GLOBULIN % 23.2 % (11.1-18.8)
== END 2016-11-19 12:08 | disposition expired ==
LOC: M ED 11:07 → M ED INP 22:13 → M PCU 11-15 15:15 → M MSPAV 11-16 15:30
PROVIDERS: ADMIT Hospitalist; ATTEND Family Medicine
DX: I21.3 ST elevation (STEMI) myocardial infarction of unspecified site (principal); N17.9 Acute kidney failure, unspecified; I50.32 Chronic diastolic (congestive) heart failure; R07.89 Other chest pain; R10.9 Unspecified abdominal pain; R13.10 Dysphagia, unspecified; Z66 Do not resuscitate; I48.91 Unspecified atrial fibrillation; I10 Essential (primary) hypertension; E78.5 Hyperlipidemia, unspecified; R79.89 Other specified abnormal findings of blood chemistry; K21.9 Gastro-esophageal reflux disease without esophagitis; R00.1 Bradycardia, unspecified; D50.9 Iron deficiency anemia, unspecified; D53.9 Nutritional anemia, unspecified; F32.9 Major depressive disorder, single episode, unspecified; I73.9 Peripheral vascular disease, unspecified; G47.00 Insomnia, unspecified; I35.0 Nonrheumatic aortic (valve) stenosis; Z79.01 Long term (current) use of anticoagulants; Z79.899 Other long term (current) drug therapy; Z90.49 Acquired absence of other specified parts of digestive tract; Z90.710 Acquired absence of both cervix and uterus; Z88.6 Allergy status to analgesic agent; Z88.5 Allergy status to narcotic agent; Z80.42 Family history of malignant neoplasm of prostate; Z80.43 Family history of malignant neoplasm of testis; Z86.73 Personal history of transient ischemic attack (TIA), and cerebral infarction without residual deficits